=== PATIENT | female | born 1950 | race Caucasian/White ===

== ENCOUNTER 2017-11-21 07:51 | Day surgery (SDC) | payer OTHER ==
--- NOTE | 2017-11-18 10:30 | EKG ---
Test Date: 2017-11-17 Test Time: 10:00:20 [employer]: MURPHY MEASUREMENT RESULTS: Intervals: Rate: 69 ME: 164 QRSD: 94 QT: 412 QTc: 441 [place]: P: 55 ME: 164 QRS: 27 T: 52 INTERPRETIVE STATEMENTS: Normal sinus rhythm Normal ECG Compared to ECG 04/18/2013 04:47:11 Sinus tachycardia no longer present Electronically Signed On 11-18-17 10:27:32 CDT by Bob Tellez
[2017-11-21] MEDS ORDERED: FENTANYL CITR 100 MCG/2 ML IV ONE (07:52)
[2017-11-21] MEDS ORDERED: MIDAZOLAM HCL 2 MG/2 ML INJ IV ONE (07:52)
[2017-11-21] MEDS ORDERED: GENTAMICIN 100 MG/100 ML BAG 100 MG/100 ML BAG IV ONE (08:17)
[2017-11-21] MEDS ORDERED: Ringers Lactate 1,000 ML IV ONE (08:17)
[2017-11-21] MEDS ORDERED: PROPOFOL 200 MG/20 ML VIAL IV ONE ×2 (08:45→09:21)
[2017-11-21] MEDS ORDERED: LIDOCAINE 2% MPF 5 ML VIAL ONE ×2 (08:46→09:21)
[2017-11-21] MEDS ORDERED: MIDAZOLAM HCL 2 MG/2 ML INJ ONE (08:46)
[2017-11-21] MEDS ORDERED: FENTANYL CITR 100 MCG/2 ML ONE ×2 (08:46→09:21)
[2017-11-21] MEDS ORDERED: ONDANSETRON HCL 40 MG/20 ML VIAL ONE (08:49)
--- NOTE | 2017-11-21 09:20 | RAD REPORT ---
EXAM DESCRIPTION: RAD - Abdomen 1 View (KUB) - 11/21/2017 8:24 am CLINICAL HISTORY: Flank pain Pain COMPARISON: Abdomen 1 View (KUB) dated 10/25/2017; Abdomen 1 View (KUB) dated 12/22/2016; Abdomen 1 Vi ew (KUB) dated 07/27/2016; Abdomen 1 View (KUB) dated 07/15/2016 FINDINGS: The bowel gas pattern is non-obstructive. No evidence of free air or pneumatosis. Small ca lcifications project over the right kidney, unchanged. Large amount of stool is seen in the colon. Postsurgical sutures are present on the left. IMPRESSION: Small right renal calculi are likely present, unchanged.
[2017-11-21] MEDS ORDERED: KETOROLAC 30 MG/ML INJ ONE (10:08)
[2017-11-21 12:01] VITALS: BP 101/53; TEMP 98
[2017-11-21 12:02] VITALS: O2SAT 96
== END 2017-11-21 11:35 | disposition home or self-care (01) ==
LOC: PRE 07:51
PROVIDERS: ATTEND Urology
PROC: 0TF3XZZ Fragmentation in Right Kidney Pelvis, External Approach (ICD-10-PCS; principal; 2017-11-21 09:00)
DX: N39.0 Urinary tract infection, site not specified (principal); N20.1 Calculus of ureter; N20.0 Calculus of kidney
CPT/HCPCS: 50590; 74018; 93005; J1580; J3010; J2250; J2405

== ENCOUNTER 2019-02-09 14:11 | Emergency (ER) | payer OTHER ==
[2019-02-09] MEDS ORDERED: MORPHINE 4 MG/ML SYR ONE (15:05)
[2019-02-09] MEDS ORDERED: MORPHINE 2 MG/ML SYR ONE (15:05)
[2019-02-09] MEDS ORDERED: ONDANSETRON 4 MG (ODT) TAB ONE (15:05)
--- NOTE | 2019-02-09 15:15 | ER ---
Nurse's Notes [facility] Name: Clair Ruvalcaba Age: 68 yrs Sex: Female : 1950 Arrival Date: 02/09/2019 Time: 14:14 Bed 13 Private MD: Diagnosis: Nondisplaced fracture of proximal phalanx of finger Presentation: 02/09 14:16 Presenting complaint: Patient states: "I fell and jammed my hand, I hurt my arm, I hurt aj1 my back." Patient states [place] the [place] and she stepped up onto a piece of concrete and lost her balance and fell, landing on her left side. Reports that this fall happened 2 days ago. Bruising noted to left fingers. Patient reports that her pain is not getting any better. Transition of care: patient was not received from another setting of care. Onset of symptoms was February 09, 2019. Risk Assessment: Do you want to hurt yourself or someone else? Patient reports no desire to harm self or others. Initial Sepsis Screen: Does the patient meet any 2 criteria? No. Patient's initial sepsis screen is negative. Does the patient have a suspected source of infection? No. Patient's initial sepsis screen is negative. Care prior to arrival: None. 14:16 Method Of Arrival: Ambulatory aj 14:16 Acuity: FÉLIX 4 aj1 Triage Assessment: 14:18 General: Appears in no apparent distress. uncomfortable, Behavior is calm, cooperative, aj1 appropriate for age. Pain: Complains of pain in back, left hand, anterior aspect of left shoulder, left wrist and posterior aspect of left shoulder Pain currently is 7 out of 10 on a pain scale. Neuro: Level of Consciousness is awake, alert, obeys commands. Cardiovascular: Patient's skin is warm and dry. Respiratory: Airway is patent Trachea Respiratory effort is even, unlabored, Respiratory pattern is regular, symmetrical. Musculoskeletal: Range of motion: limited in DIP of left little finger, PIP of left little finger and MCP of left little finger Swelling present in right hand. Injury Description: Patient reports that she fell 2 days ago. Historical: - Allergies: 14:18 Lisinopril; aj1 - Home Meds: 14:18 Cymbalta Oral [Active]; levothyroxine 25 mcg tab 1 tab once daily [Active]; metoprolol aj1 succinate 25 mg Oral Tb24 1 tab once daily [Active]; Tramadol Oral [Active]; Tylenol #3 Oral [Active]; - PMHx: 14:18 chronic back pain; Hypertension; Hypothyroidism; aj1 - Immunization history:: Flu vaccine is not up to date. - Social history:: Smoking status: Patient/guardian denies using tobacco. - Ebola Screening: : Patient denies travel to an Ebola-affected area in the 21 days before illness onset. Screenin:25 Abuse screen: Denies threats or abuse. Nutritional screening: No deficits noted. rb1 Tuberculosis screening: No symptoms or risk factors identified. Fall Risk Fall in past 12 months (25 points). No secondary diagnosis (0 pts). No IV (0 pts). Ambulatory Aid- None/Bed Rest/Nurse Assist (0 pts). Gait- Normal/Bed Rest/Wheelchair (0 pts) Mental Status- Oriented to own ability (0 pts). Total Jin Fall Scale indicates Low Risk Score (25-44 pts). Fall prevention measures have been instituted. Side Rails Up X 2 Placed close to Nursing Station 1:1 attendant Assigned to Pt. Frequent Obs/Assesments occuring Family Present and informed to notify staff if they need to leave bedside As available Patient and Family Educated on Fall Prevention Program and strategies. Assessment: 14:25 General: Appears in no apparent distress. comfortable, Behavior is calm, cooperative. rb1 Pain: Complains of pain in left hand Pain currently is 7 out of 10 on a pain scale. Pain began x 2 days. Neuro: Level of Consciousness is awake, alert, obeys commands, Oriented to person, place, time, situation. Cardiovascular: Capillary refill < 3 seconds is brisk in bilateral fingers. Respiratory: Airway is patent Respiratory effort is even, unlabored, Respiratory pattern is regular, symmetrical. GI: No signs and/or symptoms were reported involving the gastrointestinal system. : No signs and/or symptoms were reported regarding the genitourinary system. Derm: Skin is pink, warm \\T\\ dry. Musculoskeletal: Range of motion: limited in left fingers. 15:20 Reassessment: Patient appears in no apparent distress at this time. No changes from rb1 previously documented assessment. Vital Signs: 14:18 BP 123 / 84; Pulse 79; Resp 18; Temp 97.6; Pulse Ox 99% on R/A; Weight 63.5 kg (R); aj1 Height 5 ft. 1 in. (154.94 cm) (R); Pain 7/10; 15:15 BP 125 / 79; Pulse 81; Resp 16; Pulse Ox 99% on R/A; rb1 14:18 Body Mass Index 26.45 (63.50 kg, 154.94 cm) aj1 ED Course: 14:14 Patient arrived in ED. as 14:17 Triage completed. aj1 14:18 Arm band placed on Patient placed in an exam room. aj1 14:23 Sameer Milner PA is PHCP. jr8 14:23 Floyd Santos MD is Attending Physician. jr8 14:25 Patient has correct armband on for positive identification. Bed in low position. Call rb1 light in reach. Side rails up X 1. Pulse ox on. NIBP on. 15:01 Teodora Hinton, RN is Primary Nurse. rb1 15:11 Hand Left 3 View XRAY In Process Unspecified. EDMS 15:37 No provider procedures requiring assistance completed. Patient did not have IV access rb1 during this emergency room visit. Administered Medications: 15:13 Drug: morphine 5 mg Route: IM; Site: right gluteus; aa5 15:13 Drug: Zofran 4 mg Route: PO; aa5 Outcome: 15:15 Discharge ordered by . jr8 15:37 Patient left the ED. rb1 15:37 Discharged to home ambulatory, with significant other. rb1 15:37 Condition: stable 15:37 Discharge instructions given to patient, Instructed on discharge instructions, follow up and referral plans. Demonstrated understanding of instructions, follow-up care, Prescriptions given X none Signatures: Dispatcher [employer] EDMS Aisha Beasley, RN RN aj1 Carleen Stiles Audri RN RN aa5 Sameer Milner PA PA jr8 Teodora Hinton, RN RN rb1
--- NOTE | 2019-02-09 15:16 | EDPHYS ---
Physician Documentation [facility] Name: Clair Ruvalcaba Age: 68 yrs Sex: Female : 1950 Arrival Date: 02/09/2019 Time: 14:14 Bed 13 Private MD: ED Physician Floyd Santos HPI: 02/09 14:49 This 68 yrs old Female presents to ER via Ambulatory with complaints of jr8 Finger Injury. 14:49 Mechanism of injury: Fall: the patient fell from a standing position. Onset: The jr8 symptoms/episode began/occurred 2 day(s) ago. Pt reports mechanical fall from 2 days ago with increase pain and bruising to left hand. Historical: - Allergies: 14:18 Lisinopril; aj1 - Home Meds: 14:18 Cymbalta Oral [Active]; levothyroxine 25 mcg tab 1 tab once daily [Active]; metoprolol aj1 succinate 25 mg Oral Tb24 1 tab once daily [Active]; Tramadol Oral [Active]; Tylenol #3 Oral [Active]; - PMHx: 14:18 chronic back pain; Hypertension; Hypothyroidism; aj1 - Immunization history:: Flu vaccine is not up to date. - Social history:: Smoking status: Patient/guardian denies using tobacco. - Ebola Screening: : Patient denies travel to an Ebola-affected area in the 21 days before illness onset. ROS: 14:49 Constitutional: Negative for fever, chills, and weight loss, Eyes: Negative for injury, jr8 pain, redness, and discharge, ENT: Negative for injury, pain, and discharge, Neck: Negative for injury, pain, and swelling, Cardiovascular: Negative for chest pain, palpitations, and edema, Respiratory: Negative for shortness of breath, cough, wheezing, and pleuritic chest pain, Abdomen/GI: Negative for abdominal pain, nausea, vomiting, diarrhea, and constipation, Back: Negative for injury and pain, MS/Extremity: Pain and bruising to left hand Skin: Negative for injury, rash, and discoloration. Exam: 14:49 Constitutional: This is a well developed, well nourished patient who is awake, alert, jr8 and in no acute distress. Head/Face: Normocephalic, atraumatic. Eyes: Pupils equal round and reactive to light, extra-ocular motions intact. Lids and lashes normal. Conjunctiva and sclera are non-icteric and not injected. Cornea within normal limits. Periorbital areas with no swelling, redness, or edema. ENT: Nares patent. No nasal discharge, no septal abnormalities noted. Tympanic membranes are normal and external auditory canals are clear. Oropharynx with no redness, swelling, or masses, exudates, or evidence of obstruction, uvula midline. Mucous membranes moist. Neck: Trachea midline, no thyromegaly or masses palpated, and no cervical lymphadenopathy. Supple, full range of motion without nuchal rigidity, or vertebral point tenderness. No Meningismus. Chest/axilla: Normal chest wall appearance and motion. Nontender with no deformity. No lesions are appreciated. Cardiovascular: Regular rate and rhythm with a normal S1 and S2. No gallops, murmurs, or rubs. Normal PMI, no JVD. No pulse deficits. Respiratory: Lungs have equal breath sounds bilaterally, clear to auscultation and percussion. No rales, rhonchi or wheezes noted. No increased work of breathing, no retractions or nasal flaring. Abdomen/GI: Soft, non-tender, with normal bowel sounds. No distension or tympany. No guarding or rebound. No evidence of tenderness throughout. 14:49 Musculoskeletal/extremity: Extremities: noted in the dorsal aspect of middle phalanx of left middle finger, dorsal aspect of middle phalanx of left ring finger, dorsal aspect of proximal phalanx of left ring finger, dorsal aspect of middle phalanx of left little finger, dorsal aspect of proximal phalanx of left little finger and dorsum of left hand: ecchymosis, ROM: intact in all extremities, Circulation is intact in all extremities. Sensation intact. Vital Signs: 14:18 BP 123 / 84; Pulse 79; Resp 18; Temp 97.6; Pulse Ox 99% on R/A; Weight 63.5 kg (R); aj1 Height 5 ft. 1 in. (154.94 cm) (R); Pain 7/10; 15:15 BP 125 / 79; Pulse 81; Resp 16; Pulse Ox 99% on R/A; rb1 14:18 Body Mass Index 26.45 (63.50 kg, 154.94 cm) aj1 MDM: 14:25 Patient medically screened. jr8 15:11 Data reviewed: vital signs, nurses notes, radiologic studies, plain films, and as a jr8 result, I will discharge patient. Data interpreted: Pulse oximetry: on room air is 99 %. Interpretation: normal. Counseling: I had a detailed discussion with the patient and/or guardian regarding: the historical points, exam findings, and any diagnostic results supporting the discharge/admit diagnosis, radiology results. Medical screen evaluation completed. EMTALA emergency medical condition absent. Medical screen evaluation completed. EMTALA emergency medical condition absent. ED course: Fracture to left fifth proximal phalange, transverse, non-displaced. Pt to be placed in splint and to FU with hand. 02/09 14:49 Order name: Hand Left 3 View XRAY jr8 02/09 15:13 Order name: Finger Splint; Complete Time: 15:28 jr8 Administered Medications: 15:13 Drug: morphine 5 mg Route: IM; Site: right gluteus; aa5 15:13 Drug: Zofran 4 mg Route: PO; aa5 Disposition: 15:46 Co-signature as Attending Physician, Floyd Santos MD. rn Disposition: 02/09/19 15:15 Discharged to Home. Impression: Nondisplaced fracture of proximal phalanx of finger. - Condition is Stable. - Discharge Instructions: Finger Fracture. - Medication Reconciliation Form, Thank You Letter form. - Follow up: Private Physician; When: As needed; Reason: Recheck today's complaints, Re-evaluation by your physician. - Problem is new. - Symptoms have improved. Signatures: Dispatcher [employer] EDMS Aisha Beasley RN RN aj1 Floyd Santos MD MD rn Calderon, Audri, RN RN aa5 Sameer Milner PA PA jr8 Teodora Hinton, RN RN rb1 Corrections: (The following items were deleted from the chart) 15:37 15:15 02/09/2019 15:15 Discharged to Home. Impression: Nondisplaced fracture of rb1 proximal phalanx of finger. Condition is Stable. Forms are Medication Reconciliation Form, Thank You Letter, Antibiotic Education, Prescription Opioid Use. Follow up: Private Physician; When: As needed; Reason: Recheck today's complaints, Re-evaluation by your physician. Problem is new. Symptoms have improved. jr8
[2019-02-09 15:42] VITALS: BP 123/84; TEMP 97.6; O2SAT 99
--- NOTE | 2019-02-09 15:51 | RAD REPORT ---
EXAM DESCRIPTION: RAD -Hand Left 3 View - 02/09/2019 3:10 pm CLINICAL HISTORY: Left hand pain status post injury FINDINGS: Lucency within the proximal aspect of the fifth proximal phalanx probably a nondisplaced f racture A screw fuses the fifth DIP joint. Distal aspect of the screw lies outside of the fifth distal phalan x. Osteoporosis No dislocation
== END 2019-02-09 15:37 | disposition home or self-care (01) ==
LOC: ER 14:11
DX: S62.607A Fracture of unspecified phalanx of left little finger, initial encounter for closed fracture (principal); E03.9 Hypothyroidism, unspecified; I10 Essential (primary) hypertension; W18.30XA Fall on same level, unspecified, initial encounter; Y93.9 Activity, unspecified; Y92.59 Other trade areas as the place of occurrence of the external cause; Z88.8 Allergy status to other drugs, medicaments and biological substances
CPT/HCPCS: 73130; 96372; 99284; J2270

== ENCOUNTER 2019-11-22 16:36 | Emergency (ER) | payer OTHER ==
--- NOTE | 2019-11-22 18:15 | RAD REPORT ---
EXAM DESCRIPTION: CT - [id number] - 11/22/2019 6:05 pm CLINICAL HISTORY: Trauma, head and neck injury. fall injury ;Pain COMPARISON: Myelogram C Spine dated 10/20/2016 TECHNIQUE: Axial 5 mm thick images of the head were obtained. Axial 2 mm thick images of the cervical spine were obtained with sagittal and coronal reconstruction images generated and reviewed. All CT scans are performed using dose optimization technique as appropriate and may include automated exposure control or mA/KV adjustment according to patient size. FINDINGS: CT HEAD WITHOUT CONTRAST: No acute hemorrhage, hydrocephalus or extra-axial collection is identified.No areas of brain edema or midline shift. The paranasal sinuses and mastoids are clear.The calvarium is intact. Moderate right-sided scalp pattie candis. CT CERVICAL SPINE WITHOUT CONTRAST: No fracture or subluxation.Multilevel moderate degenerative changes present, most notable at C4-5 and C5-6. Large posterior osteophyte at C4-5.No prevertebral soft tissues swelling is identified. IMPRESSION: No acute intracranial or cervical spine findings. Moderately severe mid cervical degenerative changes.
--- NOTE | 2019-11-22 18:31 | ER ---
Nurse's Notes [facility] Name: Clair Ruvalcaba Age: 69 yrs Sex: Female : 1950 Arrival Date: 11/22/2019 Time: 16:39 Bed 14 Private MD: Diagnosis: Superficial injury of head;Contusion of right knee;Contusion of right elbow Presentation: 11/21 16:40 Chief complaint: Patient states: Tripped on uneven surface at [employer] parking lot just ll1 [employer]. Landed on right knee. Hit right side of forehead on concrete. No LOC. Hematoma noted. No blood thinners. Gait steady since. Coronavirus screen: Patient denies a cough. Patient denies shortness of breath or difficulty breathing. Patient denies measured and/or subjective temperature greater than 100.4F prior to today's visit. Patient denies travel on a cruise ship or to a country the [facility] currently lists as an affected area. Patient denies contact with known and/or suspected case of COVID-19. Proceed with normal triage. Patient instructed to continue to wear a mask when interacting with others. Patient moved to private room, placed in contact and droplet isolation with eye protection until further assessment. Ebola Screen: Patient denies travel to an Ebola-affected area in the 21 days before illness onset. Initial Sepsis Screen: Does the patient meet any 2 criteria? No. Patient's initial sepsis screen is negative. Risk Assessment: Do you want to hurt yourself or someone else? Patient reports no desire to harm self or others. Onset of symptoms was November 22, 2019. 16:40 Method Of Arrival: EMS: [facility] ll1 16:40 Acuity: FÉLIX 3 ll1 19:16 Initial Sepsis Screen: Does the patient have a suspected source of infection? No. ks7 Patient's initial sepsis screen is negative. Triage Assessment: 17:36 General: Appears in no apparent distress. Behavior is calm, cooperative. Pain: ks7 Complains of pain in right arm and right leg. Left neck. Musculoskeletal: Tenderness present in right arm and right leg. left neck. Injury Description: Abrasion sustained to right arm and right leg. Historical: - Allergies: 19:16 Lisinopril; ks7 19:16 PENICILLINS; ks7 - PMHx: 19:16 chronic back pain; Hypertension; Hypothyroidism; ks7 - Immunization history:: Adult Immunizations up to date. - Social history:: Smoking status: Patient denies any tobacco usage or history of. Patient/guardian denies using alcohol, street drugs, tobacco products. Screenin:38 Abuse screen: Denies threats or abuse. Nutritional screening: No deficits noted. ks7 Tuberculosis screening: No symptoms or risk factors identified. Fall Risk None identified. Fall in past 12 months (25 points). No secondary diagnosis (0 pts). No IV (0 pts). Ambulatory Aid- None/Bed Rest/Nurse Assist (0 pts). Gait- Normal/Bed Rest/Wheelchair (0 pts) Mental Status- Oriented to own ability (0 pts). Total Jin Fall Scale indicates. Assessment: 17:38 General: Appears in no apparent distress. Musculoskeletal: Reports pain in right arm ks7 and right leg. left neck pt states she was walking, tripped on the curb and fell onto R side. pt denies dizziness. mechanical fall. abrasion to R knee and R elbow. full ROM in all extremities. pain to L neck. denies back pain or CARBALLO. 19:14 Reassessment: Patient states feeling better. ks7 Vital Signs: 16:40 BP 123 / 83; Pulse 71; Resp 16; Temp 98.5; Pulse Ox 97% ; Pain 2/10; ll1 17:37 BP 123 / 83; Pulse 80; Resp 18; Temp 98(TE); Pulse Ox 100% ; Pain 5/10; ks7 19:11 BP 125 / 79; Pulse 80; Resp 18; Temp 98.1(O); Pulse Ox 100% ; Pain 0/10; ks7 [place] Coma Score: 17:52 Eye Response: spontaneous(4). Verbal Response: oriented(5). Motor Response: obeys jr8 commands(6). Total: 15. ED Course: 16:39 Patient arrived in ED. ll1 16:41 Triage completed. ll1 16:42 Arm band placed on Patient placed in an exam room, on a stretcher. ll1 16:59 [facility] jr8 16:59 Dhaval Melo MD is Attending Physician. jr8 17:10 Cristela Bishop RN is Primary Nurse. ks7 17:40 Patient has correct armband on for positive identification. Bed in low position. Call ks7 light in reach. Side rails up X2. 17:40 No provider procedures requiring assistance completed. Patient did not have IV access ks7 during this emergency room visit. 18:05 CT Head C Spine In Process Unspecified. EDMS 18:09 Patient moved back from radiology. ks7 Administered Medications: No medications were administered Outcome: 18:30 Discharge ordered by . denis 19:14 Discharged to home ambulatory, with family. ks7 19:14 Condition: good 19:14 Discharge instructions given to patient, Instructed on discharge instructions. 19:16 Patient left the ED. ks7 Signatures: Dispatcher [employer] EDSD Sameer Milner PA PA jr8 Paul Bajwa RN RN ll1 Cristela Bishop RN RN ks7 Corrections: (The following items were deleted from the chart) 19:16 16:42 Allergies: Lisinopril; [facility] ks7 19:16 16:42 Allergies: PENICILLINS; [facility] ks7 19:16 16:42 PMHx: chronic back pain; [facility] ks7 19:16 16:42 PMHx: Hypertension; [facility] ks7 19:16 16:42 PMHx: Hypothyroidism; [facility] ks7
--- NOTE | 2019-11-22 18:31 | EDPHYS ---
Physician Documentation [facility] Name: Clair Ruvalcaba Age: 69 yrs Sex: Female : 1950 Arrival Date: 11/22/2019 Time: 16:39 Bed 14 Private MD: ED Physician Dhaval Melo HPI: 11/21 17:52 This 69 yrs old Female presents to ER via EMS with complaints of Head Injury. jr8 17:52 The patient or guardian reports pain, tenderness. The complaints affect the right jr8 worship. Onset: The symptoms/episode began/occurred acutely, today. Associated signs and symptoms: The patient has no apparent associated signs or symptoms, Loss of consciousness: This patient did not experience any loss of consciousness. Severity of symptoms: At their worst the symptoms were mild, in the emergency department the symptoms are unchanged. The patient has not experienced similar symptoms in the past. The patient has not recently seen a physician. Patient stated that she tripped falling backward. Hit right side of head, elbow, and knee. Only concerned for her head at this time. Historical: - Allergies: 19:16 Lisinopril; ks7 19:16 PENICILLINS; ks7 - PMHx: 19:16 chronic back pain; Hypertension; Hypothyroidism; ks7 - Immunization history:: Adult Immunizations up to date. - Social history:: Smoking status: Patient denies any tobacco usage or history of. Patient/guardian denies using alcohol, street drugs, tobacco products. ROS: 17:52 Eyes: Negative for injury, pain, redness, and discharge, ENT: Negative for injury, jr8 pain, and discharge, Neck: Negative for injury, pain, and swelling, Cardiovascular: Negative for chest pain, palpitations, and edema, Respiratory: Negative for shortness of breath, cough, wheezing, and pleuritic chest pain, Abdomen/GI: Negative for abdominal pain, nausea, vomiting, diarrhea, and constipation, Back: Negative for injury and pain, Skin: Negative for injury, rash, and discoloration. 17:52 MS/extremity: Positive for ecchymosis, pain, swelling, tenderness, of the right arm and right leg. 17:52 Neuro: Positive for headache, Negative for altered mental status, dizziness, gait disturbance, hearing loss, loss of consciousness, numbness, seizure activity, speech changes, syncope, near syncope, tingling, tinnitus, tremor, visual changes, weakness. Exam: 17:52 Head/Face: Normocephalic, atraumatic. Eyes: Pupils equal round and reactive to light, jr8 extra-ocular motions intact. Lids and lashes normal. Conjunctiva and sclera are non-icteric and not injected. Cornea within normal limits. Periorbital areas with no swelling, redness, or edema. ENT: Nares patent. No nasal discharge, no septal abnormalities noted. Tympanic membranes are normal and external auditory canals are clear. Oropharynx with no redness, swelling, or masses, exudates, or evidence of obstruction, uvula midline. Mucous membranes moist. Neck: Trachea midline, no thyromegaly or masses palpated, and no cervical lymphadenopathy. Supple, full range of motion without nuchal rigidity, or vertebral point tenderness. No Meningismus. Cardiovascular: Regular rate and rhythm with a normal S1 and S2. No gallops, murmurs, or rubs. Normal PMI, no JVD. No pulse deficits. Respiratory: Lungs have equal breath sounds bilaterally, clear to auscultation and percussion. No rales, rhonchi or wheezes noted. No increased work of breathing, no retractions or nasal flaring. Abdomen/GI: Soft, non-tender, with normal bowel sounds. No distension or tympany. No guarding or rebound. No evidence of tenderness throughout. Back: No spinal tenderness. No costovertebral tenderness. Full range of motion. Skin: Warm, dry with normal turgor. Normal color with no rashes, no lesions, and no evidence of cellulitis. Neuro: Awake and alert, GCS 15, oriented to person, place, time, and situation. Cranial nerves II-XII grossly intact. Motor strength 5/5 in all extremities. Sensory grossly intact. Cerebellar exam normal. Normal gait. 17:52 Musculoskeletal/extremity: Extremities: grossly normal except: noted in the right arm: Mild bruising noted to right elbow. No tenderness to palpation. Full ROM Present , noted in the right leg: abrasion, ecchymosis, pain, tenderness, ROM: intact in all extremities, full active range of motion, full passive range of motion, Circulation is intact in all extremities. Sensation intact. Vital Signs: 16:40 BP 123 / 83; Pulse 71; Resp 16; Temp 98.5; Pulse Ox 97% ; Pain 2/10; ll1 17:37 BP 123 / 83; Pulse 80; Resp 18; Temp 98(TE); Pulse Ox 100% ; Pain 5/10; ks7 19:11 BP 125 / 79; Pulse 80; Resp 18; Temp 98.1(O); Pulse Ox 100% ; Pain 0/10; ks7 Cydney Coma Score: 17:52 Eye Response: spontaneous(4). Verbal Response: oriented(5). Motor Response: obeys jr8 commands(6). Total: 15. MDM: 17:00 Patient medically screened. jr8 18:29 Data reviewed: vital signs, nurses notes, radiologic studies, CT scan, and as a result, jr8 I will discharge patient. Data interpreted: Pulse oximetry: on room air is 100 %. Interpretation: normal. Counseling: I had a detailed discussion with the patient and/or guardian regarding: the historical points, exam findings, and any diagnostic results supporting the discharge/admit diagnosis, radiology results, the need for outpatient follow up, a family practitioner, to return to the emergency department if symptoms worsen or persist or if there are any questions or concerns that arise at home. 11/21 17:27 Order name: CT Head C Spine; Complete Time: 18:29 jr8 Administered Medications: No medications were administered Disposition: 11/22 08:17 Co-signature as Attending Physician, Dhaval Melo MD I agree with the assessment and kdr plan of care. Disposition: 11/22/19 18:30 Discharged to Home. Impression: Superficial injury of head, Contusion of right knee, Contusion of right elbow. - Condition is Stable. - Discharge Instructions: Head Injury, Adult, Hematoma, Knee Pain. - Medication Reconciliation Form, Thank You Letter, Antibiotic Education, Prescription Opioid Use form. - Follow up: Private Physician; When: 2 - 3 days; Reason: Recheck today's complaints, Continuance of care, Re-evaluation by your physician. - Problem is new. - Symptoms have improved. Signatures: Dispatcher [employer] EDMS Dhaval Melo MD MD kdr Roszak, Josh, PA PA jr8 Paul Bajwa RN RN ll1 Cristela Bishop RN RN ks7 Corrections: (The following items were deleted from the chart) 11/21 19:16 16:42 Allergies: Lisinopril; 1 ks7 19:16 16:42 Allergies: PENICILLINS; 1 ks7 19:16 16:42 PMHx: chronic back pain; 1 ks7 19:16 16:42 PMHx: Hypertension; 1 ks7 19:16 16:42 PMHx: Hypothyroidism; Sujatha ks7 19:16 18:30 11/22/2019 18:30 Discharged to Home. Impression: Superficial injury of head; ks7 Contusion of right knee; Contusion of right elbow. Condition is Stable. Forms are Medication Reconciliation Form, Thank You Letter, Antibiotic Education, Prescription Opioid Use. Follow up: Private Physician; When: 2 - 3 days; Reason: Recheck today's complaints, Continuance of care, Re-evaluation by your physician. Problem is new. Symptoms have improved. jr8
[2019-11-22 20:01] VITALS: O2SAT 100
[2019-11-22 20:02] VITALS: BP 125/79; TEMP 98.1
== END 2019-11-22 19:16 | disposition home or self-care (01) ==
LOC: ER 16:36
DX: S00.90XA Unspecified superficial injury of unspecified part of head, initial encounter (principal); S80.01XA Contusion of right knee, initial encounter; S50.01XA Contusion of right elbow, initial encounter; W01.0XXA Fall on same level from slipping, tripping and stumbling without subsequent striking against object, initial encounter; Y93.01 Activity, walking, marching and hiking; Y92.9 Unspecified place or not applicable; I10 Essential (primary) hypertension; Z88.0 Allergy status to penicillin; Z88.8 Allergy status to other drugs, medicaments and biological substances
CPT/HCPCS: 70450; 72125; 99283

== ENCOUNTER 2020-07-07 08:54 | Day surgery (SDC) | payer OTHER ==
--- NOTE | 2020-07-03 09:47 | RAD REPORT ---
EXAM DESCRIPTION: RAD - Chest Pa And Lat (2 Views) - 07/03/2020 9:40 am CLINICAL HISTORY: PRE OP, pending lithotripsy COMPARISON: Two view chest September 2017 TECHNIQUE: Frontal and lateral views of the chest were obtained. FINDINGS: The lungs are clear of mass, infiltrate or failure. Interstitial pattern matches compariso n. Heart size is normal and central vasculature is within normal limits. No pleural effusion or pn eumothorax seen. Osteopenic and degenerative bony changes are present. No acute finding. No aortic a bnormality. IMPRESSION: No acute cardiopulmonary process. No significant change from 2018.
[2020-07-03 09:52] LABS: Absolute Lymphocytes (CBC) 2.3 K/uL (0.7-4.9); Basophils % 1.1 % (0-1.3); Hematocrit 38.2 % (36.0-45.0); Lymphocytes % 38.1 % (15.3-44.8); RBC Red Blood Cell Count 4.25 M/uL (3.86-4.86)
[2020-07-03 10:07] LABS: Potassium 4.2 mmol/L (3.5-5.1)
[2020-07-03 10:21] LABS: Protime INR 0.82
--- NOTE | 2020-07-03 14:09 | EKG ---
Test Date: 2020-07-03 Test Time: 09:16:34 Spray Machine Tender: LARISA MEASUREMENT RESULTS: Intervals: Rate: 81 MN: 146 QRSD: 82 QT: 386 QTc: 448 [place]: P: 50 MN: 146 QRS: 7 T: 48 INTERPRETIVE STATEMENTS: Normal sinus rhythm Normal ECG Compared to ECG 11/17/2017 10:00:20 No significant changes Electronically Signed On 07-03-20 14:08:48 MAP COMPILER by Bob Tellez
[~2020-07-07 08:54] MED LIST: CLINDAMYCIN INJ 600 MG in NA CHLORIDE 0.9% 50 ML IV ONE; Gentamicin Inj 140 MG in NA CHLORIDE 0.9% 100 ML IV ONE
[2020-07-07] MEDS ORDERED: Ringers Lactate 1,000 ML IV ONE ×2 (09:48→12:56)
[2020-07-07] MEDS ORDERED: LIDOCAINE 2% MPF 5 ML VIAL ONE (11:04)
[2020-07-07] MEDS ORDERED: ONDANSETRON 4 MG/2 ML VIAL ONE (11:04)
[2020-07-07] MEDS ORDERED: FENTANYL CITR 100 MCG/2 ML ONE (11:04)
[2020-07-07] MEDS ORDERED: propofoL 200 MG/20 ML VIAL IV ONE (11:04)
[2020-07-07] MEDS ORDERED: HYDROCODONE/APAP 5/325 MG TAB PO PRN (12:22)
[2020-07-07] MEDS ORDERED: PHENAZOPYRIDINE 100MG TAB PO ONE (12:22)
[2020-07-07] MEDS ORDERED: dexAMETHasone 10 MG/ML VIAL ONE (12:36)
[2020-07-07 13:46] VITALS: BP 114/53; TEMP 97.5
[2020-07-07 13:47] VITALS: O2SAT 96
--- NOTE | 2020-07-07 13:52 | OP ---
Surgeon: ZEB PIERRE Preoperative Diagnoses: 1.Persistent urinary tract infection. 2.Right nephrolithiasis-2 stones, 5 mm each. Postoperative Diagnoses: 1.Persistent urinary tract infection. 2.Right nephrolithiasis-2 stones, 5 mm each. Principle Procedure: Right ESWL stands for extracorporeal shockwave lithotripsy. Indication For Procedure: Ms. Ruvalcaba is a 70-year-old woman, who presented to the Urology Clinic wit h recurrent urinary tract infections. She had previously undergone shockwave lithotripsy with Dr. Adrien gibbs in the past, but she had a persistent urinary tract infection despite multiple treatments with an tibiotics. No cystoscopic abnormality was identified, but upper tract calcifications were noted. As a result, because they were visible on plain film, she was recommended for shockwave lithotripsy in case the stones harbor the infection. As she had more than 1 stone each about 5 mm in size, it was r easonable to attempt to manage her stones this way. The risks and side effects were discussed in det ail as well as the benefits. Procedure In Detail: The patient was consented in the preoperative holding area before being transfe rred to the operative suite where general anesthesia was induced. She was given clindamycin 600 mg a nd gentamicin 140 mg IV antimicrobial prophylaxis and pneumo boots were provided for DVT prophylaxis. She was placed supine on the procedure table with a waterbath beneath her backside. Fluoroscopic i magery was used to visualize and target the 2 calculi seen within the lower pole of the right kidney, and shockwave lithotripsy was initiated. Initially at low power and then ramped up over the course of around 500 shocks to near maximal power of 7, shockwave lithotripsy was allowed to progress until approximately 1000 shocks at which point we revisualized the area. One of the stones had significant ly fragmented and the other was significantly smaller in size. As a result, we retargeted it and con tinued to shock for an additional 1000 shocks. At this point, there were only small fragments that w ere somewhat dispersed, but still within the lower pole of the kidney; so we targeted the area that w ould bring most of those fragments within the cone of shockwave lithotripsy targeting and continued t o shock the stone dust for an additional 500 shocks for a total of 2500 shocks delivered. In the end , the patient was awakened from general anesthesia, transferred to a stretcher, and then transferred to the recovery room in good condition. Complications: None. Discharge Disposition: She will follow up in the Urology Clinic with nurse practitioner, Campos in approximately 2 weeks' time. She will obtain a KUB prior to that visit, but no sooner than 1 or 2 d ays prior if possible. She should be discharged with a strainer to strain her urine to collect any s tone fragments that she is able to pass. She will continue the antimicrobial therapy started preoper atively. Subsequent evaluation would then include a repeat urine culture at least 3-4 weeks after ce ssation of all antimicrobial therapy to assess for persistence of the infection. If any significant residual stone burden seen on KUB associated with persistence of infection, there may be a role for s urgical therapy including ureteroscopy; however, if no significant residual stone burden and the infe ction is cleared, subsequent followup would be established 6 months to 1 year later to assess for int erval recurrence of infection. As she is a recurrent stone former, about 1 month after shockwave lit hotripsy is completed, she should undergo 2 times 24-hour urine collections and metabolic profile ass essment via [facility]. Subsequent followup will be determined both to ensure clearance of her stone burden, but also complete clearance of her persistent infection. BOB/SALVADOR Voice ID: [id number] Report ID: [id number]
== END 2020-07-07 13:49 | disposition home or self-care (01) ==
LOC: OR 08:54
PROVIDERS: ATTEND Urology
DX: N20.0 Calculus of kidney (principal); Z87.440 Personal history of urinary (tract) infections; Z20.822 Contact with and (suspected) exposure to COVID-19
CPT/HCPCS: 93005; 87088; 85025; 87086; 80048; 36415; 85610; 85730; 87077; 87186; 71046; 50590; U0002; J2704; J1580; J3010; J1100; J7120 ×2; J2405

== ENCOUNTER 2020-08-13 06:50 | Day surgery (SDC) | payer OTHER ==
--- OUTSIDE RECORDS SUMMARY | 2020-08-13 06:53 | XMS REPORT | Continuity of Care Document ---
:1950 Author Organization [facility] t Address [address] [place] [address] Care Team Providers Name Role Phone Rosa Leary RN Attending Clinician Unavailable Meseret Auguste Attending Clinician Eda RUIZ S Attending Clinician Elham RUIZ Attending Clinician Therapy-Walkin Attending Clinician Unavailable Doctor Unassigned, Name Attending Clinician Unavailable Elham RUIZ Admitting Clinician Problems This patient has no known problems. Allergies, Adverse Reactions, Alerts This patient has no known allergies or adverse reactions. Medications This patient has no known medications. Procedures This patient has no known procedures. Encounters Start End Encounter Admission Attending Care Care Encounter Source Date/Time Date/Time Type Type Clinicians Facility Department ID 2020-08-10 2020-08-[address] [facility] [id number] [facility] 2020-08-06 2020-08-[address] [facility] [id number] [facility] 2020-07-06 2020-07-[address] [facility] [id number] [facility] 2020-06-112020-06-[address] [facility] [id number] [facility] 2020-05-04 2020-05-04 [facility] [id number] 2020-04-23 2020-04-[address] [facility] [id number] [facility] 2020-04-07 2020-04-07 Transition Jim Leary [id number] 00:00:00 00:00:00 of Care Rosa Branch [id number] Kristy [id number] 2020-04-02 2020-04-05 [facility] MontoyaMeseret [facility] [id number] 18:40:00 15:45:00 Encounter Hernan Veras [id number] Bassam Lizarraga [id number] [place] [id number] 2019-12-09 2019-12-09 Ancillary Therapy-[facility] [id number] 14:04:10 18:17:26 Visit kin, Health [id number] Lizbeth-tSanislav-Mari Lemariah [id number] [facility] [id number] [address] ([facility]) 2019-12-09 2019-12-09 Orders Doctor JIM [id number] 00:00:00 00:00:00 Only Unassigned, ALVIN [id number] [place] [facility] [id number] Results This patient has no known results.
[2020-08-13] MEDS ORDERED: MORPHINE 2 MG/ML SYR ONE (08:12)
[2020-08-13] MEDS ORDERED: ONDANSETRON 4 MG/2 ML VIAL ONE ×2 (08:12→13:03)
--- NOTE | 2020-08-13 08:14 | RAD REPORT ---
EXAM DESCRIPTION: CT - Stone Protocol - 08/13/2020 8:01 am CLINICAL HISTORY: Abdominal pain. Left flank pain COMPARISON: 2012 TECHNIQUE: Computed axial tomography of the abdomen pelvis was obtained without oral or IV contrast. Lack of IV and oral contrast limits evaluation of solid organs, bowel, and vessels. Coronal reformat felicia images were obtained and reviewed. All CT scans are performed using dose optimization technique as appropriate and may include automated exposure control or mA/KV adjustment according to patient size. FINDINGS: Multiple, bilateral renal calculi. 12 millimeters calculus mid left ureter. Moderate left hydronephrosis. No right hydronephrosis. No bladder calculus The liver, spleen, pancreas and adrenals appear grossly normal There is no evidence of diverticulitis. Postsurgical changes involve the stomach and small bowel. Normal appendix. Moderate amount of stool within the colon IMPRESSION: 12 millimeter calculus mid left ureter resulting in moderate left hydronephrosis
[2020-08-13 08:42] LABS: Absolute Lymphocytes (CBC) 2.2 K/uL (0.7-4.9); Basophils % 0.7 % (0-1.3); Hematocrit 37.9 % (36.0-45.0); Lymphocytes % 23.2 % (15.3-44.8); MPV 8.3 fL (7.6-11.3); RBC Red Blood Cell Count 4.31 M/uL (3.86-4.86)
[2020-08-13 08:48] LABS: ALT/SGPT 22 U/L (12-78); AST/SGOT 14 U/L (15-37); Albumin 3.7 g/dL (3.4-5.0); Alkaline Phosphatase 86 U/L (45-117); BUN Blood Urea Nitrogen 27 mg/dL (7-18); Bicarbonate 22 mmol/L (21-32); Bilirubin Direct < 0.1 mg/dL (0-0.2); Bilirubin Total 0.3 mg/dL (0.2-1.0); Glucose Level 112 mg/dL (74-106); Lipase 114 U/L (73-393); Protein, Total 7.4 g/dL (6.4-8.2); Sodium Level 138 mmol/L (136-145)
[2020-08-13] MEDS ORDERED: PROMETHAZINE INJ 25 MG/ML AMP ONE (09:35)
[2020-08-13] MEDS ORDERED: FENTANYL CITR 100 MCG/2 ML ONE ×3 (09:35→13:01)
--- NOTE | 2020-08-13 09:53 | ER ---
Nurse's Notes [facility] Name: Clair Ruvalcaba Age: 70 yrs Sex: Female : 1950 Arrival Date: 08/13/2020 Time: 06:52 Bed 14 Private MD: Diagnosis: 12 mm left renal calculus with mild to moderate hydronephrosis Presentation: 08/13 07:08 Chief complaint: Patient states: pain to left lateral aspect of abdomen that began 2 aa5 days ago. Pt reports she has been taking Cephalexin for UTI since Monday. Pt denies nausea/vomiting/diarrhea. 07:08 Coronavirus screen: At this time, the client does not indicate any symptoms associated aa5 with coronavirus-19. Ebola Screen: Patient negative for fever greater than or equal to 101.5 degrees Fahrenheit, and additional compatible Ebola Virus Disease symptoms. Initial Sepsis Screen: Does the patient meet any 2 criteria? No. Patient's initial sepsis screen is negative. Does the patient have a suspected source of infection? No. Patient's initial sepsis screen is negative. Risk Assessment: Do you want to hurt yourself or someone else? Patient reports no desire to harm self or others. Onset of symptoms was August 2020. 07:08 Method Of Arrival: Ambulatory aa5 07:08 Acuity: FÉLIX 3 aa5 Historical: - Allergies: 07:25 Lisinopril; aa5 07:25 PENICILLINS; aa5 - PMHx: 07:25 chronic back pain; Hypertension; Hypothyroidism; aa5 - PSHx: 07:25 Gastric Bypass; bladder lift; Hysterectomy; R knee replacement; aa5 - Immunization history:: Adult Immunizations unknown. - Social history:: Smoking status: Patient denies any tobacco usage or history of. Screenin:00 Abuse screen: Denies threats or abuse. Nutritional screening: No deficits noted. jd3 Tuberculosis screening: No symptoms or risk factors identified. Fall Risk Ambulatory Aid- None/Bed Rest/Nurse Assist (0 pts). Gait- Normal/Bed Rest/Wheelchair (0 pts) Mental Status- Oriented to own ability (0 pts). Total Jin Fall Scale indicates No Risk (0-24 pts). Assessment: 07:59 General: Appears in no apparent distress. uncomfortable, Behavior is calm, cooperative, jd3 appropriate for age. Pain: Complains of pain in anterior aspect of left lateral abdomen. Neuro: Level of Consciousness is awake, alert, obeys commands, Oriented to person, place, time, situation. Cardiovascular: Denies chest pain, Capillary refill < 3 seconds Patient's skin is warm and dry. Respiratory: Airway is patent Respiratory effort is even, unlabored, Respiratory pattern is regular, symmetrical, Denies cough, shortness of breath. GI: Abdomen is round non-distended, Abd is soft and non tender X 4 quads. Reports upper abdominal pain. : Reports being treated currently for UTI. EENT: No signs and/or symptoms were reported regarding the EENT system. Derm: Skin is intact, Skin is dry, Skin is normal, Skin temperature is warm. Musculoskeletal: Circulation, motion, and sensation intact. Range of motion: intact in all extremities. 09:36 Reassessment: Patient appears in no apparent distress at this time. No changes from jd3 previously documented assessment. Patient and/or family updated on plan of care and expected duration. Pain level reassessed. Patient is alert, oriented x 3, equal unlabored respirations, skin warm/dry/pink. 10:24 Reassessment: Patient appears in no apparent distress at this time. Patient and/or jd3 family updated on plan of care and expected duration. Pain level reassessed. Patient is alert, oriented x 3, equal unlabored respirations, skin warm/dry/pink. Patient states feeling better. 11:30 Reassessment: Patient appears in no apparent distress at this time. No changes from jd3 previously documented assessment. Patient and/or family updated on plan of care and expected duration. Pain level reassessed. Patient is alert, oriented x 3, equal unlabored respirations, skin warm/dry/pink. 12:50 Reassessment: Patient appears in no apparent distress at this time. Patient and/or jd3 family updated on plan of care and expected duration. Pain level reassessed. Patient is alert, oriented x 3, equal unlabored respirations, skin warm/dry/pink. OR team to pick pt up for surgery. report given to OR nurse. Vital Signs: 07:08 BP 139 / 95; Pulse 82; Resp 18 S; Temp 98.2(O); Pulse Ox 100% on R/A; Weight 68.04 kg aa5 (R); Height 5 ft. 2 in. (157.48 cm) (R); Pain 3/10; 10:24 BP 133 / 75; Pulse 78; Resp 17 S; Pulse Ox 97% on R/A; jd3 12:51 BP 142 / 63; Pulse 82; Resp 17 S; Pulse Ox 98% on R/A; jd3 07:08 Body Mass Index 27.44 (68.04 kg, 157.48 cm) aa5 ED Course: 06:52 Patient arrived in ED. as 07:08 Arm band placed on Patient placed in an exam room, on a stretcher. aa5 07:13 Dhaval Melo MD is Attending Physician. kdr 07:17 Marck Yeh RN is Primary Nurse. jd3 07:24 Triage completed. aa5 08:00 Patient has correct armband on for positive identification. Bed in low position. Call jd3 light in reach. Side rails up X 1. Adult w/ patient. Pulse ox on. NIBP on. 08:01 CT Stone Protocol In Process Unspecified. EDMS 08:30 Inserted saline lock: 24 gauge in right wrist, using aseptic technique. Blood collected.jd3 09:51 Tre Sears MD is Referral Physician. kdr 10:18 Tre Sears MD is Hospitalizing Provider. kdr 12:52 No provider procedures requiring assistance completed. Patient admitted, IV remains in jd3 place. Administered Medications: 08:29 Drug: morphine 2 mg Route: IVP; Site: right wrist; jd3 09:25 Follow up: Response: No adverse reaction; RASS: Alert and Calm (0) jd3 08:29 Drug: Zofran (Ondansetron) 4 mg Route: IVP; Site: right wrist; jd3 09:25 Follow up: Response: No adverse reaction jd3 09:18 Drug: fentaNYL (PF) 25 mcg Route: IVP; Site: right wrist; aa5 10:10 Follow up: Response: No adverse reaction; RASS: Alert and Calm (0) jd3 09:18 Drug: Phenergan 12.5 mg Route: IVP; Site: right wrist; aa5 10:10 Follow up: Response: No adverse reaction jd3 12:23 Drug: fentaNYL (PF) 25 mcg Route: IVP; Site: right wrist; jd3 12:54 Follow up: Response: No adverse reaction; RASS: Alert and Calm (0) jd3 Outcome: 09:52 Discharge ordered by . kdr 10:19 Decision to Hospitalize by Provider. kdr 12:52 Admitted to OR accompanied by nurse, via stretcher, with chart. jd3 12:52 Condition: stable 12:52 Instructed on the need for admit, Demonstrated understanding of instructions. 12:53 Patient left the ED. jd3 Signatures: Dispatcher [employer] EDMS Dhaval Melo MD MD kdr Martinez, Amelia as Calderon, Audri, RN RN aa5 Marck Yeh RN RN jd3 Corrections: (The following items were deleted from the chart) 12:52 12:50 Reassessment: Patient appears in no apparent distress at this time. Patient jd3 and/or family updated on plan of care and expected duration. Pain level reassessed. Patient is alert, oriented x 3, equal unlabored respirations, skin warm/dry/pink. jd3
--- NOTE | 2020-08-13 09:53 | EDPHYS ---
Physician Documentation [facility] Name: Clair Ruvalcaba Age: 70 yrs Sex: Female : 1950 Arrival Date: 08/13/2020 Time: 06:52 Bed 14 Private MD: ED Physician Dhaval Melo HPI: 08/13 08:14 This 70 yrs old Female presents to ER via Ambulatory with complaints of Flank kdr Pain, Abdominal Problem. 08:15 The patient presents with abdominal pain in the left lower quadrant. Onset: The kdr symptoms/episode began/occurred last night. The symptoms radiate to the left flank. Associated signs and symptoms: Pertinent positives: constipation, nausea, Pertinent negatives: blood in stools, chest pain, diarrhea, dysuria, fever, headache, hematuria, palpitations, shortness of breath, vaginal discharge, vomiting, vomiting blood. The symptoms are described as achy, constant, crampy, steady, vague. Modifying factors: The symptoms are alleviated by nothing, the symptoms are aggravated by nothing. Severity of pain: At its worst the pain was mild moderate just prior to arrival, this morning, last night, She was unable to sleep or get comfortable all night. She had come to the ED but it was busy so she went back home but couldn't get comfortable or sleep so she returned this morning, in the emergency department the pain is unchanged. The patient has not experienced similar symptoms in the past. The patient has not recently seen a physician. Historical: - Allergies: 07:25 Lisinopril; aa5 07:25 PENICILLINS; aa5 - PMHx: 07:25 chronic back pain; Hypertension; Hypothyroidism; aa5 - PSHx: 07:25 Gastric Bypass; bladder lift; Hysterectomy; R knee replacement; aa5 - Immunization history:: Adult Immunizations unknown. - Social history:: Smoking status: Patient denies any tobacco usage or history of. ROS: 08:15 Constitutional: Negative for fever, chills, and weight loss, Eyes: Negative for injury, kdr pain, redness, and discharge, Neck: Negative for injury, pain, and swelling, Cardiovascular: Negative for chest pain, palpitations, and edema, Respiratory: Negative for shortness of breath, cough, wheezing, and pleuritic chest pain, Back: Negative for injury and pain, : Negative for injury, bleeding, discharge, and swelling, MS/Extremity: Negative for injury and deformity, Skin: Negative for injury, rash, and discoloration, Neuro: Negative for headache, weakness, numbness, tingling, and seizure activity. Psych: Negative for depression, anxiety, suicide ideation, homicidal ideation, and hallucinations, Allergy/Immunology: Negative for hives, rash, and allergies, Endocrine: Negative for neck swelling, polydipsia, polyuria, polyphagia, and marked weight changes, Hematologic/Lymphatic: Negative for swollen nodes, abnormal bleeding, and unusual bruising. 08:15 Abdomen/GI: Positive for abdominal pain, nausea, vomiting, abdominal cramps, Negative for black/tarry stool, rectal pain, rectal bleeding, bowel incontinence. Exam: 08:15 Constitutional: This is a well developed, well nourished patient who is awake, alert, kdr and in no acute distress. Head/Face: Normocephalic, atraumatic. Eyes: Pupils equal round and reactive to light, extra-ocular motions intact. Lids and lashes normal. Conjunctiva and sclera are non-icteric and not injected. Cornea within normal limits. Periorbital areas with no swelling, redness, or edema. ENT: Nares patent. No nasal discharge, no septal abnormalities noted. Tympanic membranes are normal and external auditory canals are clear. Oropharynx with no redness, swelling, or masses, exudates, or evidence of obstruction, uvula midline. Mucous membranes moist. Neck: Trachea midline, no thyromegaly or masses palpated, and no cervical lymphadenopathy. Supple, full range of motion without nuchal rigidity, or vertebral point tenderness. No Meningismus. Chest/axilla: Normal chest wall appearance and motion. Nontender with no deformity. No lesions are appreciated. Cardiovascular: Regular rate and rhythm with a normal S1 and S2. No gallops, murmurs, or rubs. Normal PMI, no JVD. No pulse deficits. Respiratory: Lungs have equal breath sounds bilaterally, clear to auscultation and percussion. No rales, rhonchi or wheezes noted. No increased work of breathing, no retractions or nasal flaring. Back: No spinal tenderness. No costovertebral tenderness. Full range of motion. Skin: Warm, dry with normal turgor. Normal color with no rashes, no lesions, and no evidence of cellulitis. MS/ Extremity: Pulses equal, no cyanosis. Neurovascular intact. Full, normal range of motion. Neuro: Awake and alert, GCS 15, oriented to person, place, time, and situation. Cranial nerves II-XII grossly intact. Motor strength 5/5 in all extremities. Sensory grossly intact. Cerebellar exam normal. Normal gait. Psych: Awake, alert, with orientation to person, place and time. Behavior, mood, and affect are within normal limits. 08:15 Abdomen/GI: Inspection: abdomen appears normal, Bowel sounds: active, all quadrants, Palpation: soft, mild abdominal tenderness, in the anterior aspect of left lateral abdomen and left lower quadrant, mass, is not appreciated, rebound tenderness, is not appreciated, involuntary guarding, is not appreciated, no appreciated organomegaly. Vital Signs: 07:08 BP 139 / 95; Pulse 82; Resp 18 S; Temp 98.2(O); Pulse Ox 100% on R/A; Weight 68.04 kg aa5 (R); Height 5 ft. 2 in. (157.48 cm) (R); Pain 3/10; 10:24 BP 133 / 75; Pulse 78; Resp 17 S; Pulse Ox 97% on R/A; jd3 12:51 BP 142 / 63; Pulse 82; Resp 17 S; Pulse Ox 98% on R/A; jd3 07:08 Body Mass Index 27.44 (68.04 kg, 157.48 cm) aa5 MDM: 08:15 Data reviewed: vital signs, nurses notes, lab test result(s), radiologic studies. kdr Counseling: I had a detailed discussion with the patient and/or guardian regarding: the historical points, exam findings, and any diagnostic results supporting the discharge/admit diagnosis, lab results, radiology results. 09:52 Patient medically screened. kdr 08/13 07:13 Order name: Basic Metabolic Panel; Complete Time: 09:37 kdr 08/13 07:13 Order name: CBC with Diff; Complete Time: 09:37 kdr 08/13 07:13 Order name: Hepatic Function; Complete Time: 09:37 kdr 08/13 07:13 Order name: Lipase; Complete Time: 09:37 kdr 08/13 07:38 Order name: CT Stone Protocol kdr 08/13 07:13 Order name: IV Saline Lock; Complete Time: 08:24 kdr 08/13 07:13 Order name: Labs collected and sent; Complete Time: 08:24 kdr Administered Medications: 08:29 Drug: morphine 2 mg Route: IVP; Site: right wrist; jd3 09:25 Follow up: Response: No adverse reaction; RASS: Alert and Calm (0) jd3 08:29 Drug: Zofran (Ondansetron) 4 mg Route: IVP; Site: right wrist; jd3 09:25 Follow up: Response: No adverse reaction jd3 09:18 Drug: fentaNYL (PF) 25 mcg Route: IVP; Site: right wrist; aa5 10:10 Follow up: Response: No adverse reaction; RASS: Alert and Calm (0) jd3 09:18 Drug: Phenergan 12.5 mg Route: IVP; Site: right wrist; aa5 10:10 Follow up: Response: No adverse reaction jd3 12:23 Drug: fentaNYL (PF) 25 mcg Route: IVP; Site: right wrist; jd3 12:54 Follow up: Response: No adverse reaction; RASS: Alert and Calm (0) jd3 Disposition: 08/13/20 10:19 Hospitalization ordered by Tre Sears for Observation. Preliminary diagnosis is 12 mm left renal calculus with mild to moderate hydronephrosis. - Bed requested for Operating Room. - Status is Observation. jd3 - Condition is Fair. - Problem is an acute exacerbation. - Symptoms have improved. Signatures: Dispatcher [employer] EDMS Dhaval Melo MD MD kdr Anni Bailey RN RN aa5 Marck Yeh RN RN jd3 Corrections: (The following items were deleted from the chart) 10:17 09:52 08/13/2020 09:52 Discharged to Home. Impression: 12 mm left renal calculus with kdr mild to moderate left hydronephrosis. Condition is Stable. Forms are Medication Reconciliation Form, Thank You Letter, Antibiotic Education, Prescription Opioid Use. Follow up: Tre Sears; When: call person to OR at Noon; Reason: Continuance of care, Re-evaluation by your physician. Problem is an acute exacerbation. Symptoms have improved. kdr 12:53 10:19 Hospitalization Ordered by Tre Sears MD for Observation. Preliminary jd3 diagnosis is 12 mm left renal calculus with mild to moderate hydronephrosis. Bed requested for Operating Room. Status is Observation. Condition is Fair. Problem is an acute exacerbation. Symptoms have improved. kdr
[2020-08-13] MEDS ORDERED: propofoL 200 MG/20 ML VIAL IV ONE (13:01)
[2020-08-13] MEDS ORDERED: dexAMETHasone 10 MG/ML VIAL ONE (13:01)
[2020-08-13] MEDS ORDERED: KETOROLAC 30 MG/ML INJ ONE (13:01)
[2020-08-13] MEDS ORDERED: LIDOCAINE 1% MPF 5 ML VIAL ONE (13:02)
[2020-08-13] MEDS ORDERED: Ringers Lactate 1,000 ML IV ONE (13:23)
[2020-08-13] MEDS ORDERED: CEFAZOLIN/SWI 1gm 1 GM/10 ML SYR ONE (13:52)
[2020-08-13] MEDS ORDERED: NS 0.9% VIAL 10 ML ONE (13:52)
--- NOTE | 2020-08-13 14:54 | RAD REPORT ---
EXAM DESCRIPTION: RAD - Urethrocystogrphy Retrograde - 08/13/2020 2:06 pm CLINICAL HISTORY: LEFT SIDE KIDNEY STONE COMPARISON: No comparisons FINDINGS: Total fluoro time: 7 seconds
--- NOTE | 2020-08-13 15:16 | CON ---
Reason For Consultation: Left ureterolithiasis and left flank pain. History Of Present Illness: Mrs. Ruvalcaba presented to the emergency department after a night of sever e left flank pain. She initially presented to the emergency department around midnight or 3 a.m., bu t because the facility was so backlogged with patients, she went home and returned earlier this [facility]. She subsequently was evaluated and found to have signs of acute kidney injury with a creatinine of 1.5 over her baseline of less than 1. A CT scan was performed and revealed left ureteral obstruct ion consistent with 1 of the 2 stones known to be remnant in the left kidney on most recent KUB. The patient was afebrile at home and throughout the course of this episodes, but she did have significan t pain. She was thus counseled on the recommendation for left ureteral stent placement. Physical Examination: General: At the time of my visit with the patient, she was comfortable and well-appearing, in no acu te distress. Abdomen: Her abdomen was soft and nontender. Cardiovascular: She had no signs of dyspnea or respiratory distress. Laboratory Data: 08/13/2020; creatinine 1.53. White blood count 9.6, hemoglobin 12.9. I reviewed the CT imaging directly and despite the read which would suggest a 12 mm calculus in the u reter on the left, to my measurement, the calculus was 5 mm in diameter. The longitudinal length is more difficult to assess. Assessment And Recommendations: This is a 70-year-old woman with bilateral nephrolithiasis with left ureterolithiasis causing flank pain and acute kidney injury. I recommend cystoscopy in evaluation of her known outpatient recurrent urinary tract infections. I have also recommended evaluation for signs of colovesical fistula. Simultaneously, we will proceed with retrograde pyelography and left ureteral stent placement and man agement of her acute kidney injury. WR/MODL Voice ID: [id number] Report ID: [id number]
--- NOTE | 2020-08-13 15:19 | OP ---
Surgeon: ZEB PIERRE Preoperative Diagnoses: 1.Left ureterolithiasis. 2.Left nephrolithiasis. Postoperative Diagnoses: 1.Left ureterolithiasis approximately 5 mm axial dimension. 2.Left nephrolithiasis, single calculus approximately 4 mm axial dimension. Principal Procedures: 1.Cystoscopy. 2.Left retrograde pyelography. 3.Left ureteral stent placement. Indication For Procedure: Mrs. Ruvalcaba is a 70-year-old woman, who is well known to me in [facility]. Because of issues with recurrent urinary tract infections, I had evaluated her and recommende d shockwave lithotripsy in a staged approach starting with the right side, where the predominance of her stone burden existed. She underwent that procedure in an uncomplicated fashion on July 07, 2020 and did pass several stone fragments. Followup KUB revealed significant fragmentation of the [address] one burden present amongst other smaller stones in that kidney. However, she had persistent left nep hrolithiasis, but the size of the stones was 5 mm by plain film and there were 2 stones. Because of persistent signs of infection despite fragmentation of the right calculi, I recommended cystoscopic e valuation and consideration for a CT of the abdomen and pelvis with oral and rectal contrast to asses s for potential fistula disease. Shortly after her most recent visit where I initiated Keflex for he r urinary tract infection, she developed severe flank pain that resulted in emergency department visi t and evaluation. In the absence of any fever or chills, but with signs of acute kidney injury with a creatinine of 1.5 up from her baseline less than 1, cystoscopy and left ureteral stent placement we re recommended. Procedure In Detail: The patient was consented in the preoperative holding area before being transfe rred to the operative suite where general anesthesia using an LMA was induced. She was given Ancef 1 g IV antimicrobial prophylaxis to complement the Keflex that she last took around 3 a.m. Pneumoboot s were provided for DVT prophylaxis. She was placed in the lithotomy position, padded and secured to the table appropriately. Her genitalia were prepped using Hibiclens and draped in standard fashion. The case was begun using the sequential obturators to dilate the meatus prior to inserting a 22-Pramod nch rigid cystoscope via her urethra and enter a bladder with ease. There was some mild urethral varsha nosis that necessitated this dilatation prior to passage of the scope. Upon entry into the bladder, it was decompressed of urine, and then refilled with sterile saline and surveyed in its entirety. Wi thin the posterior region of the bladder, there were sessile lesions observed that were likely consis tent with cystitis or cystitis cystica as they did not have a typical urothelial carcinoma appearance and likely were related to her recent infection. The ureteral orifices were orthotopic in location and were effluxing clear urine bilaterally. The left ureteral orifice was cannulated with a 5-Czech ureteral access catheter and a retrograde pyelogram was performed. Left retrograde pyelography: Using a 70:30 mixture of Omnipaque and saline, contrast was injected via the 5-Czech ureteral access catheter and did propagate with ease up the mid distal into the mid and proximal ureter before enter ing a moderately dilated renal pelvis. I then passed a Sensor wire via the 5-Czech ureteral access catheter where it coiled in the upper pole. Over the Sensor wire, I then passed a 6-Czech by 24 cm double-J left ureteral stent with a coil observed fluoroscopically in the upper pole and 1 cystoscopi arturo observed within the bladder. Her bladder was then decompressed of fluid and urine, and she was taken out of the lithotomy position, she was then awakened from general anesthesia, transferred to a stretcher and then transferred to the recovery room in good condition. Complications: None. Discharge Disposition: Given the absence of any cystoscopic evidence of a fistula or other source to explain her recurrent infection, I recommend we proceed with definitive management of the stones on the left side and then reassess at that time. To that end, her followup appointment for outpatient c ystoscopy may be canceled, as the cystoscopy was completed operatively today. Subsequent followup sh ould be established to plan and discuss left ureteroscopy with laser lithotripsy and stent placement to occur within the next 30 days if possible. WR/MODL Voice ID: [id number] Report ID: [id number]
[2020-08-13] MEDS ORDERED: PHENAZOPYRIDINE 100MG TAB PO ONE (15:26)
[2020-08-13] MEDS ORDERED: HYDROCODONE/APAP 5/325 MG TAB ONE (15:26)
[2020-08-13 15:28] LABS: Urine Appearance CLOUDY (Clear); Urine Bilirubin NEGATIVE (Negataive); Urine Blood 3+ (Negative); Urine Color YELLOW (Yellow); Urine Glucose NEGATIVE (Negative); Urine Protein NEGATIVE (Negative); Urine Urobilinogen 0.2 mg/dL (0.2-1.0)
[2020-08-13 15:37] LABS: Urine Microscopic Reflex ORDER UMIC
[2020-08-13 15:49] VITALS: BP 112/66; TEMP 97.1; O2SAT 96
[2020-08-13 15:54] LABS: Urine Bacteria <20 /HPF (<20); Urine RBC >50 /HPF (NONE SEEN)
== END 2020-08-13 14:52 ==
LOC: ER 06:50 → OR 12:50 → ER 15:40
PROVIDERS: ATTEND Urology
PROC: 0T778DZ Dilation of Left Ureter with Intraluminal Device, Via Natural or Artificial Opening Endoscopic (ICD-10-PCS; principal; 2020-08-13 12:00)
DX: N20.1 Calculus of ureter (principal); N20.0 Calculus of kidney; Z20.822 Contact with and (suspected) exposure to COVID-19
CPT/HCPCS: 87088; 85025; 87086; 80048; 36415; 80076; 83690; 76377; 74176; 74450; 51610; 96375; 96374; 99285; 52332; U0003; J2704; J2550; J3010 ×3; J1100; J2270; J0690; J7120; J2405 ×2; 81003; 81015

== ENCOUNTER 2020-08-25 06:34 | Day surgery (SDC) | payer OTHER ==
[2020-08-25] MEDS ORDERED: Ringers Lactate 1,000 ML IV ONE (07:11)
[2020-08-25] MEDS ORDERED: propofoL 200 MG/20 ML VIAL IV ONE (07:25)
[2020-08-25] MEDS ORDERED: LIDOCAINE 1% MPF 5 ML VIAL ONE (07:26)
[2020-08-25] MEDS ORDERED: FENTANYL CITR 100 MCG/2 ML ONE ×2 (07:26→09:28)
[2020-08-25] MEDS ORDERED: KETOROLAC 30 MG/ML INJ ONE (07:26)
[2020-08-25] MEDS ORDERED: dexAMETHasone 10 MG/ML VIAL ONE (07:26)
[2020-08-25] MEDS ORDERED: ONDANSETRON 4 MG/2 ML VIAL ONE ×2 (07:26→09:10)
[2020-08-25] MEDS ORDERED: CLINDAMYCIN 600MG/D5W 600 MG/50 ML BAG IV SCH (08:00)
[2020-08-25] MEDS ORDERED: Gentamicin Inj 160 MG in NA CHLORIDE 0.9% 100 ML IV ONE (08:00)
[2020-08-25] MEDS ORDERED: CEFTRIAXONE/SWI 1gm 1 GM/10 ML SYR IV ONE (08:04)
[2020-08-25] MEDS ORDERED: CEFTRIAXONE/SWI 1gm 1 GM/10 ML SYR ONE (08:27)
[2020-08-25] MEDS ORDERED: ROCURONIUM 50 MG/5 ML VIAL IV ONE (08:33)
--- NOTE | 2020-08-25 09:01 | RAD REPORT ---
EXAM DESCRIPTION: RAD - Urethrocystogrphy Retrograde - 08/25/2020 8:39 am FINDINGS: There were 23 fluoroscopic KUB images obtained during fluoroscopic assisted retrograde ure teral Zach and pigtail stent placement. No suspicious or unexpected findings. Fluoro time was 27 seconds.
[2020-08-25] MEDS ORDERED: PHENAZOPYRIDINE 100MG TAB PO ONE ×2 (09:03→10:08)
[2020-08-25] MEDS ORDERED: HYDROCODONE/APAP 5/325 MG TAB PO PRN (09:03)
[2020-08-25] MEDS ORDERED: HYDROCODONE/APAP 5/325 MG TAB ONE (10:07)
[2020-08-25 10:15] VITALS: BP 147/69; TEMP 97.6; O2SAT 96
--- NOTE | 2020-08-25 15:57 | OP ---
Surgeon: ZEB PIERRE Preoperative Diagnoses: 1.Left obstructive ureterolithiasis. 2.Left nephrolithiasis. 3.Status post cystoscopy and left ureteral stent placement. Postoperative Diagnoses: 1.Left obstructive ureterolithiasis. 2.Left nephrolithiasis. 3.Status post cystoscopy and left ureteral stent placement. 4.Suspected urinary tract infection. Principle Procedures: 1.Cystoscopy. 2.Left ureteroscopy with laser lithotripsy. 3.Left renal aspirate, urine culture. 4.Left ureteral stent exchange. Indication For Procedure: Mrs. Ruvalcaba is a 70-year-old woman, who had previously been treated for ri ght-sided nephrolithiasis with shockwave lithotripsy with small volume left-sided nephrolithiasis. S hortly after her last outpatient visit with the decision to observe and consider intervention in a de layed fashion on the left side, the patient subsequently began to pass a left ureteral calculus resul ting in some acute kidney injury. As a result, a stent was placed urgently to preserve her renal fun ction. She presents today in followup for definitive management having undergone a preoperative urin e culture assessment just 3 days ago, which revealed less than 10,000 colonies mixed ericka. Procedure In Detail: The patient was consented in the preoperative holding area before being transfe rred to the operative suite where general anesthesia was induced. She was given clindamycin 600 mg a nd gentamicin 160 mg IV antimicrobial prophylaxis. Pneumo boots were provided for DVT prophylaxis. She was placed in the lithotomy position, padded and secured to the table appropriately. Her genital ia were prepped using Hibiclens and draped in standard fashion. The case was begun using a 22-Mauritanian rigid cystoscope to traverse the urethra and into the bladder with ease. The bladder was decompress ed of some cloudy and rather odiferous urine. The stent was minimally coated with fibrinous debris. As a result, I immediately requested an additional 1 g of ceftriaxone for an expanded antimicrobial coverage, and I removed the left ureteral stent by grasping it and delivering it to the meatus. Via the stent, a Sensor wire was passed with a coil observed fluoroscopically within the putative renal p radha. I then removed the stent over the wire leaving the wire in place, and passed a dual-lumen cat heter over the stent into the mid distal ureter. I then collected a urine culture specimen from the left renal ureteral drainage, before performing a retrograde pyelogram. Left retrograde pyelography: Using a 70:30 mixture of Omnipaque and saline, contrast was injected via the second lumen of the dual -lumen catheter and did delineate the renal pelvis with the wire coiled fluoroscopically within the m id pole. I thus placed a Bentson guidewire into the mid pole of the kidney alongside the indwelling Sensor wire. A pause was then undertaken while we awaited arrival of the gentamicin 1 g from pharmac y, and once it had been administered, I then proceeded. I then removed the dual-lumen catheter, and passed the flexible ureteroscope over the indwelling Bentson guidewire into the upper ureter where a point of obstruction was encountered. The wire was then removed, and pressurized saline irrigation w as used to visualize the region. A stone obstructing in the mid proximal ureter near the UPJ was obs erved. Using a 271 nm laser fiber and power settings of 0.8 joules and 8 hertz, the stone was quickl y fragmented into dust that some of which went into the kidney due to the pressurized irrigation. I then proceeded to enter the renal pelvis and the mid and lower pole segment were identified some of t he stone and continued fragmented. Additional calculi were observed between the mid and the lower po le calices. Where any stone was encountered, it was fragmented. Additional papillary calcifications on the calices, Chriss plaques, were noted and were quickly fragmented and released from their tiss ue localization. In the end, all of the calices had been surveyed and fluoroscopic imagery along wit h repeat antegrade injection of dye was performed to confirm all calices had been properly visualized . With no significant stone fragments, certainly nothing larger than about 0.5 mm in diameter noted, I then surveyed the renal pelvis down through the proximal and mid and distal ureter and out. I then back-loaded the rigid cystoscope over the indwelling safety wire and passed a 6-Mauritanian by 26 c m double-J left ureteral stent with a coil observed fluoroscopically within the upper pole pelvis reg ion because of the very narrowed infundibulum leading to the upper pole separate from the remainder o f the renal pelvis, which with largely to the mid and lower pole calices. An additional coil was obs erved fluoroscopically in the patient's bladder. Her bladder was then left full and I placed a 16-Fr ench Montoya catheter into her bladder to decompress it. The patient was then taken out of the lithoto my position, awakened from general anesthesia, transferred to a stretcher, and then transferred to [facility] recovery room in good condition. Complications: None. Estimated Blood Loss: Negligible. Discharge Disposition: The patient will be discharged with oral Bactrim to which her prior E coli fr om June was sensitive, presuming the current organism suspected may be similar. Given the freque ncy of recurrence of the infection, it would suggest that may be related to the renal calculi potenti ally; so we will assess on followup whether that infection resolves once the stent is removed and the calculi have been completely freed out of her kidneys or at least fragmented. So, she will be disch arged with 10 days of Bactrim along with narcotic pain medication and follow up in 1-2 weeks for cyst oscopy and left ureteral stent extraction in the office. BOB/SALVADOR Voice ID: [id number] Report ID: [id number]
== END 2020-08-25 10:31 | disposition home or self-care (01) ==
LOC: OR 06:34
PROVIDERS: ATTEND Urology
PROC: 0TF78ZZ Fragmentation in Left Ureter, Via Natural or Artificial Opening Endoscopic (ICD-10-PCS; 2020-08-25)
PROC: 0T778DZ Dilation of Left Ureter with Intraluminal Device, Via Natural or Artificial Opening Endoscopic (ICD-10-PCS; principal; 2020-08-25 07:30)
DX: N20.2 Calculus of kidney with calculus of ureter (principal); Z20.822 Contact with and (suspected) exposure to COVID-19
CPT/HCPCS: 87088; 87070; 87086; 88300; 74450; 51610; 53899; 52332; U0003; J2704; J1580; J3010 ×2; J1100; J0696; J7120; J2405 ×2; 87077; 87186

== ENCOUNTER 2022-08-02 07:27 | Day surgery (SDC) | payer OTHER ==
[2022-07-18 14:18] LABS: Potassium 3.7 mmol/L (3.5-5.1)
[2022-07-18 14:24] LABS: Hematocrit 36.5 % (36.0-45.0); Lymphocytes % 41.7 % (15.3-44.8); MCV 87.5 fL (80-100); MPV 7.4 fL (7.6-11.3); RBC Red Blood Cell Count 4.17 M/uL (3.86-4.86)
[2022-07-18 14:25] LABS: Protime INR 0.87
--- NOTE | 2022-07-18 14:40 | RAD REPORT ---
EXAM DESCRIPTION: [facility] Pa And Lat (2 Views)07/18/2022 1:50 pm CLINICAL HISTORY: Pre op pending ESWL COMPARISON: Abdomen 1 View (KUB) dated 04/14/2022; Abdomen 1 View (KUB) dated 08/05/2020; Chest Pa And Lat (2 Views) dated 07/03/2020; Abdomen 1 View (KUB) dated 05/04/2020 TECHNIQUE: PA and lateral views of the chest. FINDINGS: The lungs are clear. No pneumothorax or effusion. The cardiomediastinal contours are unrem arkable. IMPRESSION: No acute cardiopulmonary process.
--- NOTE | 2022-07-19 12:41 | EKG ---
Test Date: 2022-07-18 Test Time: 13:29:44 [place] Kiln Operator: MAYURI MEASUREMENT RESULTS: Intervals: Rate: 77 WV: 156 QRSD: 90 QT: 400 QTc: 452 [place]: P: 60 WV: 156 QRS: 8 T: 67 INTERPRETIVE STATEMENTS: Normal sinus rhythm Normal ECG Compared to ECG 07/03/2020 09:16:34 No significant changes Electronically Signed On 07-19-22 12:39:37 CDT by Robert Lomax
[2022-08-02] MEDS ORDERED: Ringers Lactate 1,000 ML IV ONE (07:50)
[2022-08-02] MEDS ORDERED: CEFAZOLIN SODIUM 1 GM/VIAL ONE (07:50)
[2022-08-02] MEDS ORDERED: propofoL 200 MG/20 ML VIAL IV ONE (08:08)
[2022-08-02] MEDS ORDERED: ONDANSETRON 4 MG/2 ML VIAL ONE (08:09)
[2022-08-02] MEDS ORDERED: FENTANYL CITR 100 MCG/2 ML ONE ×2 (08:09→10:55)
[2022-08-02] MEDS ORDERED: LIDOCAINE 2% MPF 5 ML VIAL ONE (08:09)
[2022-08-02] MEDS ORDERED: MIDAZOLAM HCL 2 MG/2 ML INJ ONE (08:09)
[2022-08-02] MEDS ORDERED: dexAMETHasone 4 MG/ML VIAL ONE (08:10)
[2022-08-02] MEDS ORDERED: CODEINE 30MG/APAP 300MG TAB PO PRN (09:38)
--- NOTE | 2022-08-02 10:23 | RAD REPORT ---
EXAM DESCRIPTION: RAD - Urethrocystogrphy Retrograde - 08/02/2022 9:39 am CLINICAL HISTORY: RT URETERAL STENT PLACEMENT COMPARISON: Urethrocystogrphy Retrograde dated 08/25/2020 FINDINGS/IMPRESSION: Four intraoperative fluoroscopic images were submitted showing cannulation of t he right ureter and placement of a double-J ureteral stent. Left hip arthroplasty. Fluoro time: 0.04 minutes Chemo dose: 0.9 mGy
--- NOTE | 2022-08-02 10:44 | OP ---
Surgeon: ZEB PIERRE Preoperative Diagnoses: 1.Partial staghorn right renal calculus. 2.Right renal mass. 3.Left nephrolithiasis. Postoperative Diagnoses: 1.Partial staghorn right renal calculus. 2.Right renal mass. 3.Left nephrolithiasis. Principal Procedures: 1.Cystoscopy with right ureteral stent placement. 2.Right ESWL, extracorporeal shock wave lithotripsy. Indication For Procedure: Ms. Ruvalcaba is a 72-year-old woman, recurrent stone former with large volum e bilateral nephrolithiasis, larger on the right than on the left. She also had an incidentally disc overed right renal mass that was enhancing and suspicious for malignancy and needed management of her stones. She has elected to proceed with treatment of her right renal mass, but understands from our discussion today that of passage of a stone could complicate the postoperative period following a pa rtial nephrectomy. As a result, she understands the need for staged ESWL and metabolic evaluation to try to rid her of the recurrent stone formation before proceeding with the partial nephrectomy. Procedure In Detail: The patient was consented in the preoperative holding area before being transfe rred to the operative suite where general anesthesia was induced. She was given Ancef 2 g IV antimic robial prophylaxis and pneumo boots were provided for DVT prophylaxis. She was placed initially in t he lithotomy position, padded and secured to the table appropriately and her genitalia were prepped w ith Hibiclens before being draped in standard fashion. The case was begun using a 22-Nigerien rigid cy stoscope to traverse the urethra and into the bladder with ease. The bladder was decompressed of flu id and urine, and there were no obvious papillary mucosal lesions, foreign bodies or stones. The rig ht ureteral orifice was cannulated using a 5-Nigerien ureteral access catheter, and no retrograde pyelo graphy was performed because of the need for subsequent ESWL. As a result, I passed a Sensor wire vi a the 5-Nigerien ureteral access catheter, coiling it in the putative upper pole of the kidney and over the Sensor wire, I passed a 6-Nigerien by 24 cm double-J right ureteral stent with a coil observed flu oroscopically in the putative renal pelvis around the calculi observed and visible fluoroscopically. The patient was then taken out of the lithotomy position, and she was transferred back to the [facility] before being transferred to the shockwave lithotripsy room where the machine in setup was present . Fluoroscopic targeting of the stones was then accomplished after a water bath was placed beneath h er right flank. Because the stone was a staghorn configuration, we did initially target the componen t of the staghorn within the calyces and then targeted the component within the renal pelvis. We sub sequently targeted the component in the right upper pole where there was what appeared to be a separa te calculus that was isolated within the loop of the stent that had been placed. So, after approxima tely 2500 shocks were delivered to the partial staghorn within the lower pole and the calices, an add itional 300 shocks was delivered to the calculus within the renal pelvis and it did quickly fragment. As a result, we turned our attention back to any residual densities within the lower pole calyces a nd completed the last 200 shocks delivered to that region for a total of 3000 shocks. In the end, th e stone did appear to significantly fragment and the patient was transferred to a stretcher before be ing transferred to the recovery room in good condition. Complications: None. Discharge Disposition: She will follow up in the Urology Clinic in about 2 to 3 months' time with a pre clinic KUB to assess for any residual nephrolithiasis on the right and confirmed that on the left . A renal ultrasound will also be arranged to rule out any subcapsular hematoma formation and also t o reassess the size of the right renal mass. She will subsequently require left ESWL and a metabolic evaluation of her recurrent stone forming potential before we can then proceed with treatment of her right renal mass via partial nephrectomy, which she expressed today [place] t she desires. BOB/SALVADOR Voice ID: [id number] Report ID: [id number]
[2022-08-02 10:54] VITALS: O2SAT 94
[2022-08-02] MEDS ORDERED: CODEINE 30MG/APAP 300MG TAB ONE (11:27)
[2022-08-02 11:53] VITALS: BP 129/58; TEMP 97.2
== END 2022-08-02 12:02 | disposition home or self-care (01) ==
LOC: OR 07:27
PROVIDERS: ATTEND Urology
PROC: 0WHR8YZ Insertion of Other Device into Genitourinary Tract, Via Natural or Artificial Opening Endoscopic (ICD-10-PCS; principal; 2022-08-02 08:30)
DX: N20.0 Calculus of kidney (principal); N28.9 Disorder of kidney and ureter, unspecified; I10 Essential (primary) hypertension; E03.9 Hypothyroidism, unspecified; F32.A Depression, unspecified; Z87.440 Personal history of urinary (tract) infections; Z98.84 Bariatric surgery status; Z79.899 Other long term (current) drug therapy; Z88.0 Allergy status to penicillin; Z88.8 Allergy status to other drugs, medicaments and biological substances
CPT/HCPCS: 36415; 50590; 51610; 71046; 74450; 80048; 85025; 85610; 87086; 87088; 93005; J0690; J1100; J2001; J2250; J2405; J2704; J3010; J7120

== ENCOUNTER 2022-10-25 08:16 | Day surgery (SDC) | payer OTHER ==
[2022-10-13 14:59] LABS: Hematocrit 37.3 % (36.0-45.0); Lymphocytes % 35.4 % (15.3-44.8); MCV 87.7 fL (80-100); MPV 6.7 fL (7.6-11.3); RBC Red Blood Cell Count 4.25 M/uL (3.86-4.86)
[2022-10-13 15:05] LABS: Protime INR 0.88
[2022-10-13 15:13] LABS: Potassium 4.3 mEq/L (3.5-5.1)
[2022-10-25] MEDS ORDERED: Ringers Lactate 1,000 ML IV ONE ×2 (08:46→11:38)
[2022-10-25] MEDS ORDERED: MIDAZOLAM HCL 2 MG/2 ML INJ ONE (10:07)
[2022-10-25] MEDS ORDERED: propofoL 200 MG/20 ML VIAL IV ONE (10:07)
[2022-10-25] MEDS ORDERED: FENTANYL CITR 100 MCG/2 ML ONE (10:07)
[2022-10-25] MEDS ORDERED: LIDOCAINE 1% MPF 5 ML VIAL ONE (10:07)
[2022-10-25] MEDS ORDERED: GLYCOPYRROLATE 0.2 MG/ML SYR ONE (10:07)
[2022-10-25] MEDS ORDERED: ONDANSETRON 4 MG/2 ML VIAL ONE (10:08)
[2022-10-25] MEDS ORDERED: dexAMETHasone 10 MG/ML VIAL ONE (10:08)
[2022-10-25] MEDS ORDERED: ROCURONIUM 50 MG/5 ML VIAL IV ONE (10:08)
[2022-10-25] MEDS ORDERED: KETOROLAC 30 MG/ML INJ ONE (10:08)
[2022-10-25] MEDS ORDERED: NEOSTIGMINE 1 MG/ML -10 ML VIAL ONE (10:10)
[2022-10-25] MEDS ORDERED: CEFAZOLIN SODIUM 1 GM/VIAL ONE (10:13)
--- NOTE | 2022-10-25 12:29 | RAD REPORT ---
EXAM DESCRIPTION: RAD - Urethrocystogrphy Retrograde - 10/25/2022 12:11 pm CLINICAL HISTORY: RT LITHO W RT STENT PLACEMENT COMPARISON: None available. FINDINGS: Single fluoroscopic series was sent to PACS, documenting needle positions during an image guided right stent placement and lithotripsy procedure. No radiologist was available for the procedur e, nor will any image interpretation he provided. Please refer to the procedural report for additiona l details. Fluoroscopy time: 1.34 Minutes. IMPRESSION: Documentation of fluoroscopy utilization as above.
[2022-10-25] MEDS: HYDROMORPHONE HCL 1 MG/ML INJ ONE ×2 (12:40→12:45)
[2022-10-25] MEDS ORDERED: PROMETHAZINE INJ 25 MG/ML AMP ONE (12:41)
[2022-10-25] MEDS ORDERED: PHENAZOPYRIDINE 100MG TAB PO ONE ×2 (12:48→13:24)
[2022-10-25] MEDS ORDERED: HYDROCODONE/APAP 5/325 MG TAB PO PRN (12:48)
[2022-10-25] MEDS ORDERED: HYDROCODONE/APAP 5/325 MG TAB ONE (13:25)
[2022-10-25 13:35] VITALS: BP 126/56; TEMP 97.1; O2SAT 97
--- NOTE | 2022-10-25 14:13 | OP ---
Surgeon: ZEB PIERRE Preoperative Diagnoses: 1.Right nephrolithiasis. 2.Recurrent urinary tract infections. 3.Left flank pain. Postoperative Diagnoses: 1.Right nephrolithiasis. 2.Recurrent urinary tract infections. 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 4.Encrusted right ureteral stent. 5.Left flank pain. Principal Procedures: 1.Right ureteroscopy with laser lithotripsy. 2.Ureteroscopic stone basketing, extensive. 3.Cystoscopy with bilateral retrograde pyelographies. 4.Right ureteral stent placement. Indication For Procedure: Ms. Ruvalcaba is a 72-year-old woman, who has an issue with recurrent urinary tract infections, currently on prophylactic antimicrobials. She has been treated with shockwave lit hotripsy for her right-sided nephrolithiasis that was visible fluoroscopically, but despite this, the re were residual stone fragments remnant within the lower pole of her right kidney, and the infection recurred/persisted the moment the antibiotics were stopped. As a result, she was recommended for de finitive management of those residual calculi and renal washout. Procedure In Detail: The patient was consented in the preoperative holding area before being transfe rred to operative suite where general anesthesia was induced. She was given IV antimicrobial prophyl axis and pneumo boots were provided for DVT prophylaxis. She was placed in the lithotomy position, p added and secured to the table appropriately, and her genitalia was prepped with Hibiclens before zoraida ng draped in standard fashion. The case was begun using a 22-Prydeinig rigid cystoscope to traverse the urethra and into the bladder with ease. The bladder was decompressed of fluid and urine, and the ri ght ureteral orifice was noted with an encrusted right ureteral stent emanating. I was able to grasp the tip of the coil of the stent within the bladder and delivered to the meatus, but the wire would not pass up the stent due to internal encrustation. As a result, I cut off the encrusted portion of the stent, but it was still encrusted further into this stent within the ureter. As a result, I left the tip of the stent externalized and passed the cystoscope alongside back into the bladder and inse rted a 5-Prydeinig ureteral access catheter alongside the stent into the mid distal ureter performing a retrograde pyelogram. Of note, the proximal coil of the stent was still somewhat formed within the m id ureter. Right retrograde pyelography: Using a 70:30 mixture of Omnipaque and saline, contrast was injected via the lumen of the 5-Prydeinig ur eteral access catheter and did propagate up a relatively nondilated mid and proximal ureter before en tering the collecting system that seemed to only delineate an upper and mid lower pole calyceal distr ibution system. As a result, I passed a Sensor wire via the 5-Prydeinig ureteral access catheter coilin g it in the left upper pole calyx, and I was then able to remove the 5-Prydeinig ureteral access cathete r as well as the partially encrusted ureteral stent with ease alongside it. I then utilized the same 5-Prydeinig ureteral access catheter to pass a Bentson guidewire up the ureter and coiled it within the collecting system. Over the Bentson guidewire, I passed an 11 x 13-Prydeinig ureteral access sheath al l the way into the proximal ureter at the level of the UPJ. I then passed the flexible ureteroscope over the wire all the way into the collecting system and surveyed each of the calyces as confirmed fl uoroscopically. The upper and mid pole calyces were all surveyed with no additional calculi remnant within. I then surveyed down into the proximal ureter, and within the mid proximal ureter laterally I had noted another ureteral takeoff, which I navigated the ureteroscope into and identified the pres ence of a duplicated collecting system with duplex ureter adjoining proximally. I then surveyed the calyces of that lower pole system and identified the presence of several stones, the largest about 3- 4 mm in diameter. Utilizing a 200 nm laser fiber at power setting of initially 1.0 joules and 15 her tz that was increased to 1.2 before going to 1.5 joules and 15 hertz, the stone was incredibly diffic ult to fragment due to its hardness. After it was divided essentially in half, I then aborted furthe r attempts at laser lithotripsy and instead utilized a 1.9-Prydeinig 0 tip Nitinol basket to go in and p ull out each and every 1 of the discrete fragments of any significant size. This had to be done uret eroscopically over the course of about 6 or 7 different extractions in order to clear the significant stone burden. Once this was done, I then utilized a laser to fragment any smaller calculi into dust smaller than 1 mm in diameter. I then surveyed into the proximal ureter backing the ureteral access sheath out as I went, and identified several additional calculi that had fallen into the mid ureter. Again, I utilized a basket on 3 or 4 different occasions to remove each of those calculi as they we re significant in nature. I then navigated the flexible ureteroscope via the ureteral access sheath and into the lower pole moiety passing a Bentson guidewire into that moiety directly under vision bef ore removing the ureteroscope, the ureteral access sheath confirming no additional stones were within the ureter, and then back-loaded the cystoscope over the indwelling Bentson wire to pass a 6-Prydeinig by 24 cm double-J stent into the lower pole duplicated collecting system moiety. Once successfully p laced it with a coil observed fluoroscopically in her bladder, I then turned my attention to her left side given the history of left flank pain. Left retrograde pyelography: Using a 70:30 mixture of Omnipaque and saline, contrast was injected via the 5-Prydeinig ureteral access catheter inserted into her left distal ureter. The contrast did propagate up a nondilated distal in to the mid and proximal ureter before entering a collecting system that was completely without signs of pelvocaliectasis. Since there was no blunting of the calyces and no specific filling defect, I ob served the drainage of the system and observed rapid ureteral efflux of contrast over the course of a bout 2-3 minutes. As a result, no stent was recommended to be placed on the patient's left side. So I decompressed her bladder of fluid and urine, and took the patient out of the lithotomy position af ter the scope was removed. She was then transferred to a stretcher after being awakened from general anesthesia and then transferred to the recovery room in good condition. Complications: None. Discharge Disposition: She should follow up in the Urology Clinic in about 2 weeks' time to have the right ureteral stent extracted. We may then consider plans for management of her 1.5 cm right renal mass after metabolic assessment is performed to figure out why she forms these recurrent hard stones. We also will reassess for recurrence or persistence of her urinary trac t infection. BOB/MODL Voice ID: [id number] Report ID: [id number]
== END 2022-10-25 13:42 | disposition home or self-care (01) ==
LOC: OR 08:16
PROVIDERS: ATTEND Urology
PROC: 0T768DZ Dilation of Right Ureter with Intraluminal Device, Via Natural or Artificial Opening Endoscopic (ICD-10-PCS; 2022-10-25)
PROC: 0TC68ZZ Extirpation of Matter from Right Ureter, Via Natural or Artificial Opening Endoscopic (ICD-10-PCS; principal; 2022-10-25 09:30)
DX: N20.0 Calculus of kidney (principal); N39.0 Urinary tract infection, site not specified; N28.89 Other specified disorders of kidney and ureter; R10.9 Unspecified abdominal pain
CPT/HCPCS: 87088; 85025; 87086; 80048; 36415; 85610; 88300; 85730; 82360; 74450; 51610; 52356; J2550; J2704; J2710; J2001; J3010; J1100; J1170; J2405; J7120 ×2; J0690; J2250

== ENCOUNTER 2023-10-12 14:27 | Inpatient (IN) | payer OTHER ==
[2023-10-12 16:55] LABS: Absolute Eosinophils 0.2 K/uL (0-0.5); Absolute Lymphocytes (CBC) 1.5 K/uL (0.7-4.9); Absolute Neutrophil 7.5 K/uL (1.8-8.0); Basophils % 0.4 % (0-1.3); Eosinophils % 1.7 % (0-4.4); Hematocrit 33.7 % (36.0-45.0); Hemoglobin 10.8 g/dL (12.0-15.0); MCH 27.2 pg (27.0-35.0); MCV 85.2 fL (80-100); MPV 7.5 fL (7.6-11.3); Monocytes % 10.1 % (3.3-12.3); Neutrophils % 72.8 % (41.7-73.7); Platelets 347 thou/uL (152-406); RBC Red Blood Cell Count 3.96 M/uL (3.86-4.86); Red Cell Distribution Width 15.8 % (12.1-15.2)
[2023-10-12 16:57] LABS: PTT, Activated Partial Thromb 30.1 SECONDS (24.3-36.9)
[2023-10-12 16:58] LABS: PT Prothrombin Time 10.5 SECONDS (9.5-12.5); Protime INR 0.95
[2023-10-12] MEDS ORDERED: ONDANSETRON 4 MG (ODT) TAB PO PRN (16:58)
[2023-10-12] MEDS ORDERED: LOPERAMIDE HCL 2 MG CAPSULE PO PRN (16:58)
[2023-10-12] MEDS ORDERED: ACETAMINOPHEN 325 MG TABLET PO PRN (17:03)
[2023-10-12 17:15] VITALS: BMI 27.3
[2023-10-12] MEDS ORDERED: ONDANSETRON 4 MG/2 ML VIAL IV PRN (17:24)
[2023-10-12 18:35] LABS: ALT/SGPT 16 U/L (13-56); AST/SGOT 12 U/L (15-37); Albumin/Globulin Ratio 0.8 (1.1-1.8); Alkaline Phosphatase 81 U/L (45-117); Anion Gap 8.4 mEq/L (5.0-15.0); BUN Blood Urea Nitrogen 11 mg/dL (7-18); Bicarbonate 28 mEq/L (21-32); Bilirubin Total 0.4 mg/dL (0.2-1.0); Globulin 3.8 g/dL (2.3-3.5); Glomerular Filtration Rate 72 ml/min (=/>90); Glucose Level 104 mg/dL (74-106); Phosphorus 3.2 mg/dL (2.5-4.9); Potassium 3.4 mEq/L (3.5-5.1); Protein, Total 6.8 g/dL (6.4-8.2); Sodium Level 136 mEq/L (136-145)
[2023-10-12 18:49] LABS: Bilirubin Direct < 0.2 mg/dL (0-0.2); Bilirubin Indirect, Calculated 0.2 mg/dL (0.2-0.8)
[2023-10-12] MEDS: ENOXAPARIN 40 MG/0.4 ML SQ SCH (21:09)
[2023-10-12] MEDS: POTASSIUM CL SA 10 MEQ TAB PO ONE (21:10)
--- NOTE | 2023-10-12 21:15 | RAD REPORT ---
EXAM DESCRIPTION: CT - Abdomen Pelvis W Contrast - 10/12/2023 7:38 pm CLINICAL HISTORY: Abd pain COMPARISON: Head Brain Wo Cont dated 03/28/2023bdomen W/Wo Contrast dated 12/26/2022; Abdomen W/Wo C ontrast dated 09/06/2023 TECHNIQUE: Thin cut axial CT imaging of the abdomen and pelvis was performed following intravenous a dministration of 100 mL Isovue 300. Multiplanar reformats were generated and reviewed. All CT scans are performed using dose optimization technique as appropriate and may include automated exposure control or mA/KV adjustment according to patient size. FINDINGS: No suspicious findings in the lung bases. The liver, spleen, adrenal glands, and pancreas show no suspicious findings. Gallbladder and biliary tree are unchanged appearance with stable nonspecific prominence of the common bile duct Symmetric renal function is seen with no hydronephrosis. Small punctate calcifications at the renal p elves, measuring up to 3 mm on the right and 4 mm on the left. Stable exophytic right superior pole 1 .8 x 1.4 cm mass. No dilated bowel loops. Sequelae of Leeann-en-Y gastric bypass and sequelae of distal colectomy again s een. Thickening and hyperenhancement along the proximal appendix and base of the cecum. Ill-defined f luid collection containing fluid and a locule of gas present at the tip of the appendix with marginal enhancement measuring 2.9 x 2.3 cm. No hernia, mass or bulky lymphadenopathy. The urinary bladder is without significant finding. No suspicious bony findings. IMPRESSION: Sequelae of ruptured acute appendicitis, with a collection measuring 2.9 x 2.3 cm at the tip. Other stable findings as above, including a stable exophytic 1.8 cm right superior renal pole mass, s uggestive of renal cell carcinoma. Few small bilateral nonobstructing renal calculi. The findings were communicated to Dr. Kim On 10/12/2023 at 21:06 hours.
[2023-10-12] MEDS: NACHLORIDE 0.45% 1,000 ML IV SCH (21:51)
[2023-10-12] MEDS: HYDROMORPHONE HCL 1 MG/ML INJ IV PRN (21:54)
--- NOTE | 2023-10-12 22:04 | RAD REPORT ---
EXAM DESCRIPTION: US - Abdomen Exam Complete - 10/12/2023 9:01 pm CLINICAL HISTORY: Abd pain COMPARISON: Abdomen Pelvis W Contrast dated 10/12/2023 TECHNIQUE: Sonographic grayscale and color flow images of the abdomen were obtained. FINDINGS: Evaluation of the midline structures reveals normal appearance of the visualized aspects o f the pancreatic head. The visualized aspects of the aorta are of normal caliber. The liver is normal in size with smooth contour. Mildly increased hepatic echogenicity. No focal les ions. No intrahepatic biliary ductal dilation. Spleen is normal in size and shows no focal suspicious findings. Gallbladder shows numerous small shadowing stones and layering sludge. No wall thickening, or pericho lecystic fluid. Common bile duct measures 3 mm in caliber, normal, with no common duct stone identifi ed. No hydronephrosis or suspicious mass in either kidney. Echogenic undulating region along the right re nal medulla, suggestive of focal cortical thinning. Normal-sized kidneys. No echogenic calculi. No ascites or bulky lymphadenopathy. IMPRESSION: Cholelithiasis. Diffuse hepatic steatosis. No other acute findings.
[2023-10-12] MEDS ORDERED: propofoL 200 MG/20 ML VIAL IV ONE (22:58)
[2023-10-12] MEDS: BUPIVACAINE 0.5% PF 10 ML VIAL ONE (22:58)
[2023-10-12] MEDS ORDERED: ROCURONIUM 50 MG/5 ML VIAL IV ONE (22:58)
[2023-10-12] MEDS ORDERED: MIDAZOLAM HCL 2 MG/2 ML INJ ONE (22:59)
[2023-10-12] MEDS ORDERED: FENTANYL CITR 100 MCG/2 ML ONE (22:59)
[2023-10-12] MEDS ORDERED: ONDANSETRON 4 MG/2 ML VIAL ONE (23:00)
[2023-10-12] MEDS ORDERED: KETOROLAC 30 MG/ML INJ ONE (23:00)
[2023-10-12] MEDS: Ringers Lactate 1,000 ML IV ONE (23:00)
[2023-10-12] MEDS ORDERED: GLYCOPYRROLATE 0.2 MG/ML SYR ONE (23:00)
[2023-10-12] MEDS ORDERED: LIDOCAINE 2% MPF 5 ML VIAL ONE (23:00)
[2023-10-12] MEDS ORDERED: NEOSTIGMINE 1 MG/ML -10 ML VIAL ONE (23:02)
[2023-10-12] MEDS ORDERED: dexAMETHasone 4 MG/ML VIAL ONE (23:02)
[2023-10-12] MEDS: METRONIDAZOLE 500mg IVPB 500 MG/100 ML BAG IV ONE (23:15)
[2023-10-12] MEDS: NA CIT/CITRIC AC 30 ML ORAL UDC ONE (23:18)
--- NOTE | 2023-10-12 23:19 | P.CNS ---
Date of Consult: 10/12/23 Reason for consult: Abdominal pain History of present illness: Patient is a 73-year-old female presents to the hospital with 4 to 5 days history of lower abdominal pain which was very bad approximately 4 days ago and then pain improved. Patient does have nausea and vomiting but denies diarrhea, constipation or blood per rectum. Patient denies dysuria or hematuria. Patient denies sore throat, runny nose, cough, headache, dizziness, chest pain, fever or chills. Patient denies anorexia. Patient went to [facility] and had x-rays done and was discharged from the emergency room couple days ago. Patient saw Dr. Kim today who admitted the patient and ordered next CT of the abdomen pelvis which showed perforated acute appendicitis. Incidental findings in the CAT scan also included cholelithiasis and a renal mass. Patient was scheduled to have an ablation of the renal mass next week. Dr. Sears is following the renal mass. Review of systems: Otherwise unremarkable Past medical history: History of hypertension, hyperlipidemia, history of obesity, GERD, neck pain and kidney stones Past surgical history: Gastric bypass surgery, colon resection, partial hysterectomy, bladder sling surgery, right knee and left hip surgery, multiple cystoscopies and stent placement Allergies: Lisinopril, Cipro, amoxicillin and Naprosyn Social history: Patient denies smoking or drinking alcohol Family history: Unknown type of cancer in the mother Vital signs: Stable, afebrile Physical exam: Awake, alert and oriented x 3 Head and neck exam: No masses Chest: Clear Heart: S1-S2 Abdomen: Soft, nondistended, hypoactive bowel sounds, right lower quadrant tenderness with rebound Extremity: Neurovascular intact Neuro: Nonfocal Diagnostic data: Laboratory data reviewed, CT and ultrasound reviewed Assessment: Acute appendicitis with perforation. Incidental finding of cholelithiasis and renal mass Plan/recommendation: Admit, n.p.o., IV fluids, IV antibiotics and to the OR for laparoscopic appendectomy possible open. Patient and family understand risk, benefits and alternatives and agree to procedure. Renal mass will be managed as an outpatient. Patient is asymptomatic from her cholelithiasis at this time. CC: Dr. Kim's office
[2023-10-12] MEDS: CEFOXITIN SODIUM 1 GM/VIAL ONE (23:35)
--- NOTE | 2023-10-12 23:35 | RAD REPORT ---
EXAM DESCRIPTION: RAD - Chest Pa And Lat (2 Views) - 10/12/2023 7:49 pm CLINICAL HISTORY: Hypertension. Abdominal pain COMPARISON: Chest Pa And Lat (2 Views) dated 07/18/2022; Abdomen 1 View (KUB) dated 04/14/2022; Abdome n 1 View (KUB) dated 08/05/2020; Abdomen Pelvis W Contrast dated 10/12/2023 TECHNIQUE: PA and lateral views of the chest were obtained. FINDINGS: The lungs are clear. Heart size is normal and central vasculature is within normal limits. No pleural effusion or pneumothorax seen. No acute bony finding noted. IMPRESSION: No acute cardiopulmonary process.
[2023-10-13] MEDS: METRONIDAZOLE 500mg IVPB 500 MG/100 ML BAG IV SCH
--- NOTE | 2023-10-13 00:21 | P.OP ---
Date of Service: 10/13/23 Preop diagnosis: Acute appendicitis with perforation Postop diagnosis: Same with abscess Procedure performed: Laparoscopic appendectomy, drainage of intraabdominal abscess Surgeon: Henri Chaney MD Visual Associate: eL CARR Estimated blood loss: Minimal Specimen: Pus and appendix Findings: As above Anesthesia: General Complications: None Drains: SUZI #10 flat Fluids and blood products: Nonapplicable Disposition: Recovery room Operative note: Patient brought to the OR and placed in supine position. General anesthesia began. Patient prepped and draped in usual sterile fashion. Marcaine 0.5% infiltrated locally. 15 blade used to make a 1 cm infraumbilical midline incision. Subcutaneous tissue divided and fascia identified and divided. Bleeding controlled with cautery. #1 Vicryl stay suture placed into the fascia. 12 mm trocar placed into the peritoneal cavity under direct vision. Pneumoperitoneum established. Two 5 mm trocars placed under direct vision. 1 trocar placed in the suprapubic region and the other in the left lower quadrant. Laparoscopy revealed acute inflammation of the appendix on the proximal part and a contained abscess at the tip of the appendix. Fluid from the abscess aspirated and cultures done. Mesoappendix divided with LigaSure. Base of the appendix on the cecum clearly identified. Endo GENE stapling device used to divide the base of the appendix. The appendix removed via Endo Catch bag. Right lower quadrant pelvis thoroughly irrigated. No evidence of bleeding or b owel injury appreciated. Tevin-Salomon drain #10 flat placed and secured with 3-0 nylon. The drain was in the pelvis in the right lower quadrant. All trocars removed under direct vision. Stay sutures tied to each other to reapproximate the fascial defect. Subcutaneous wounds irrigated and bleeding controlled cautery. Ruth used to close skin. Sterile dressing applied. Patient awakened and taken to recovery room in good general condition. CC: Dr. Kim's office
[2023-10-13] MEDS: CEFOXITIN 1 GM in NA CHLORIDE 0.9% 50 ML IVPB SCH (01:00)
[2023-10-13 04:27] LABS: Absolute Lymphocytes (CBC) 0.4 K/uL (0.7-4.9); Absolute Monocytes 0.7 K/uL (0.1-1.3); Absolute Neutrophil 7.7 K/uL (1.8-8.0); Basophils % 0.2 % (0-1.3); Eosinophils % 0.2 % (0-4.4); Hematocrit 31.4 % (36.0-45.0); Hemoglobin 10.2 g/dL (12.0-15.0); Lymphocytes % 4.4 % (15.3-44.8); MCH 27.7 pg (27.0-35.0); MCHC 32.6 g/dL (32.0-36.0); MPV 8.1 fL (7.6-11.3); Monocytes % 8.4 % (3.3-12.3); Neutrophils % 86.8 % (41.7-73.7); Platelets 302 thou/uL (152-406); Red Cell Distribution Width 16.1 % (12.1-15.2)
[2023-10-13 04:34] LABS: Anion Gap 5.4 mEq/L (5.0-15.0); Magnesium 1.8 mg/dL (1.6-2.4); Potassium 4.4 mEq/L (3.5-5.1)
[2023-10-13] MEDS: TRAMADOL HCL 50 MG TAB PO PRN (05:15)
[2023-10-13 05:21] LABS: Band Neutrophils 21 % (0-1); Blood Morphology Comment NOT SEEN (NOT SEEN); Differential Total Cells Count 100; Eosinophils 1 % (0-3); Lymphocytes 4 % (15-42); Monocytes 6 % (0-10); Platelet Estimate ADEQ; Segmented Neutrophils 68 % (40-80)
[2023-10-13 05:49] LABS: Calcium Oxalate Crystals- Ur Few /HPF (None Seen); Sqamous Epithelial <5 /HPF (None Seen); Urine Bacteria None Seen /HPF (<20); Urine Bilirubin NEGATIVE (Negative); Urine Blood Negative (Negative); Urine Clarity Clear (Clear); Urine Color Light-Yellow (Yellow); Urine Culture Reflex Order NOT NEEDED; Urine Glucose NEGATIVE (Negative); Urine Ketones NEGATIVE (Negative); Urine Microscopic Reflex YN ORDER UMIC; Urine Mucus Slight /HPF (None Seen); Urine Nitrite NEGATIVE (Negative); Urine Protein NEGATIVE (Negative); Urine RBC <5 /HPF (None Seen); Urine Urobilinogen Normal (Normal); Urine WBC <5 /HPF (<5)
[2023-10-13 05:50] LABS: Specific Gravity > 1.030 (1.005-1.030)
[2023-10-13] MEDS: MAGNESIUM SULFATE 1 gm IVPB 1 GM/100 ML BAG IV ONE (09:59)
[2023-10-13] MEDS: HYDROCODONE/APAP 7.5/325 MG TAB PO PRN (10:31)
--- NOTE | 2023-10-13 15:53 | PN ---
Date of Progress Note: 10/13/2023 Subjective: Patient is awake, alert. Pain is controlled. Objective: Vital Signs: Stable. She is afebrile. Her drain has put out 60 cc of serosanguineous fluid. White count is normal. Neutrophil percentage is 86.8. H and H is stable. Assessment: Status post laparoscopic appendectomy for perforated acute appendicitis. Recommendations: Continue IV antibiotics. Encouraged ambulation and incentive spirometry. Advance diet as tolerated. The patient is clinically stable and slowly improving. Anticipate in the hospita for at least 24 to 48 hours depending upon her clinical response to our treatment. /MODL Voice ID: [id number] Report ID: [id number]
[2023-10-13] MEDS: POLYETHYL GLY 3350 17 GM/DOSE PO PRN (17:04)
--- NOTE | 2023-10-13 22:31 | P.PN ---
Subjective Date of Service: 10/13/23 Chief Complaint: ABDOMEN AIN Subjective: Improving DHARA HAD GONE TO [facility] FOR ABDOMEN PAIN. SHE LIVES THERE. DOCTOR NEVER TOUCHED HER ABDOMEN, DID X RAYS AND SENT HER HOME. SHE CAME TO MY OFFICE NEXT DAY. SHE WAS VERY TENDER IN LOWER ABDOMEN WITH GUARDING. I DID STAT CT AFTER ADMISSION. RADIOLOGIST CALLED ME THAT SHE HAS RUPTURED AND CONTAINED APPENDDIX. I CALLED DR. GRUBBS RIGHT AWAY AND HE DID EMERGENCY SURGERY LAST NIGHT. THIS AM SHE IS DOING GREAT. Review of Systems 10-point ROS is otherwise unremarkable Physical Examination - Vital Signs Temperature: 98.5 F Blood Pressure: 125/57 Pulse: 89 Respirations: 16 Pulse Ox (%): 96 - Physical Exam General: Mild distress HEENT: Atraumatic, PERRLA, EOMI Neck: Supple, JVD not distended Respiratory: Clear to auscultation bilaterally, Normal air movement Cardiovascular: Regular rate/rhythm, Normal S1 S2 Gastrointestinal: Normal bowel sounds, No tenderness Musculoskeletal: No tenderness Integumentary: No rashes Neurological: Normal speech, Normal tone, Normal affect Lymphatics: No axilla or inguinal lymphadenopathy - Studies Laboratory Data (last 24 hrs) 10/13/23 10/13/23 03:41 03:41 WBC 8.90 Hgb 10.2 L Hct 31.4 L Plt Count 302 Sodium 136 Potassium 4.4 D BUN 11 Creatinine 0.72 Glucose 167 H Magnesium 1.8 Medications List Reviewed: Yes Assessment And Plan - Current Problems (Diagnosis) (1) Appendicular abscess Current Visit: Yes Status: Acute Plan: TERRA LOZADA DAY ONE NOW. DID WELL IF NO ILEUS, SHE WILL GO HOME IN AM. SHE HAS OTHER ISSUES OF ADHD, HTN, DJD STABLE WITH MEDS.
[2023-10-14 03:33] LABS: Anion Gap 5.1 mEq/L (5.0-15.0); Magnesium 1.9 mg/dL (1.6-2.4); Phosphorus 3.7 mg/dL (2.5-4.9); Potassium 4.1 mEq/L (3.5-5.1)
--- NOTE | 2023-10-14 10:55 | PN ---
Date of Progress Note: 10/14/2023 Subjective: The patient is awake, alert. No complaint. Tolerating diet. Pain controlled. Objective: Vital Signs: Stable, afebrile. Abdomen: Benign. Skin: SUZI drain put out 125 cc of serosanguineous fluid. Assessment: Status post laparoscopic appendectomy for perforated appendicitis with an abscess. Recommendation: Likely discharge in a.m., on oral antibiotics. Can take the drains out in the offic e. The patient encouraged to ambulate and use incentive spirometry. Continue IV antibiotics. The p atient is clinically doing well. /MODL Voice ID: [id number] Report ID: [id number]
--- NOTE | 2023-10-14 14:17 | P.PN ---
Subjective Date of Service: 10/14/23 Chief Complaint: ABDOMEN AIN Subjective: Improving DHARA HAD GONE TO [facility] FOR ABDOMEN PAIN. SHE LIVES THERE. DOCTOR NEVER TOUCHED HER ABDOMEN, DID X RAYS AND SENT HER HOME. SHE CAME TO MY OFFICE NEXT DAY. SHE WAS VERY TENDER IN LOWER ABDOMEN WITH GUARDING. I DID STAT CT AFTER ADMISSION. RADIOLOGIST CALLED ME THAT SHE HAS RUPTURED AND CONTAINED APPENDDIX. I CALLED DR. GRUBBS RIGHT AWAY AND HE DID EMERGENCY SURGERY LAST NIGHT. THIS AM SHE IS DOING GREAT. SHE IS NOT FALLING GOOD YESTERDAY. SHE PASSES SOME GAS. NO BM YET. Review of Systems 10-point ROS is otherwise unremarkable Physical Examination - Vital Signs Temperature: 96.9 F Blood Pressure: 134/61 Pulse: 88 Respirations: 18 Pulse Ox (%): 93 - Physical Exam General: Oriented x3, Mild distress HEENT: Atraumatic, PERRLA, EOMI Neck: Supple, JVD not distended Respiratory: Clear to auscultation bilaterally, Normal air movement Cardiovascular: Regular rate/rhythm, Normal S1 S2 Gastrointestinal: Normal bowel sounds, No tenderness (SOFT) Musculoskeletal: No tenderness Integumentary: No rashes Neurological: Normal speech, Normal tone, Normal affect Lymphatics: No axilla or inguinal lymphadenopathy - Studies Laboratory Data (last 24 hrs) 10/14/23 02:37 Sodium 134 L Potassium 4.1 BUN 15 Creatinine 0.82 Glucose 150 H Phosphorus 3.7 Magnesium 1.9 Microbiology Data (last 24 hrs): 10/13/23 00:11 Wound - Peritoneal Fluid Gram Stain - Final 10/13/23 00:11 Wound - Peritoneal Fluid Gram Stain - Final Medications List Reviewed: Yes Assessment And Plan - Current Problems (Diagnosis) (1) Appendicular abscess Current Visit: Yes Status: Acute Plan: SP MOUNARY DAY ONE NOW. DID WELL IF NO ILEUS, SHE WILL GO HOME IN AM. SHE HAS OTHER ISSUES OF ADHD, HTN, DJD STABLE WITH MEDS. NEEDS ONE MORE DAY FOR RECOVERY MAY GO HOME IN AM.
[2023-10-14] MEDS: DIPHENHYDRAMINE 25 MG TAB/CAP PO PRN (19:58)
[2023-10-14 20:19] VITALS: O2SAT 97
[2023-10-15 09:13] VITALS: BP 132/67; TEMP 98
--- NOTE | 2023-10-15 11:02 | PN ---
Date of Progress Note: 10/15/2023 Subjective: Patient is awake, alert, tolerating diet, ambulating, pain controlled on p.o. pain medic ations, vitals stable, afebrile. Dressing clean, dry, intact. Minimal drainage from the SUZI drain ov er the last shift, only 15 cc. Assessment: Status post laparoscopic appendectomy for perforated appendicitis with abscess. Recommendations: We will discontinue the SUZI drain. Patient will be discharged home. Discharge inst ructions given. She will be on Ceftin and Flagyl and follow up with me in 1 week. /MODL Voice ID: [id number] Report ID: [id number]
[2023-10-17 14:23] LABS: 1,25 Dihydroxy Vitamin D3 92 pg/mL; Vitamin D 1,25-Dihydroxy Total 92 pg/mL (18-72); Vitamin D,1,25-OH2, D2 <8 pg/mL
== END 2023-10-15 10:49 | disposition home or self-care (01) | DRG 399 ==
LOC: 2ND 14:27 → OBSVTOIN 10-13 11:57
PROVIDERS: ADMIT Internal Medicine; ATTEND Internal Medicine
PROC: 0DTJ4ZZ Resection of Appendix, Percutaneous Endoscopic Approach (ICD-10-PCS; principal; 2023-10-13)
PROC: 0W9F4ZZ Drainage of Abdominal Wall, Percutaneous Endoscopic Approach (ICD-10-PCS; 2023-10-13)
DX: K35.33 Acute appendicitis with perforation, localized peritonitis, and gangrene, with abscess (principal); I10 Essential (primary) hypertension; E78.5 Hyperlipidemia, unspecified; K59.00 Constipation, unspecified; M19.90 Unspecified osteoarthritis, unspecified site; F90.9 Attention-deficit hyperactivity disorder, unspecified type; K21.9 Gastro-esophageal reflux disease without esophagitis; N28.89 Other specified disorders of kidney and ureter; J44.9 Chronic obstructive pulmonary disease, unspecified; K80.20 Calculus of gallbladder without cholecystitis without obstruction; Z90.3 Acquired absence of stomach [part of]; Z88.1 Allergy status to other antibiotic agents; Z88.8 Allergy status to other drugs, medicaments and biological substances; Z90.49 Acquired absence of other specified parts of digestive tract; Z90.711 Acquired absence of uterus with remaining cervical stump
CPT/HCPCS: 36415; 71046; 74177; 76700; 80048; 80076; 81001; 82607; 82652; 83735; 84100; 84443; 85025; 85610; 85730; 87070; 87075; 87077; 87186; 87205; 88304; 94010; 94760; G0378; G0379; J0694; J1100; J1170; J1650; J2001; J2250; J2405; J2704; J2710; J3010; J3475; J7120; Q9967

== ENCOUNTER 2024-07-29 07:21 | Day surgery (SDC) | payer OTHER ==
--- NOTE | 2024-07-26 15:47 | RAD REPORT ---
EXAMINATION: TWO VIEW CHEST XR CLINICAL INDICATION: Pre-op pending cholecystectomy TECHNIQUE: 2 views of the chest was performed. COMPARISON: 10/12/2023 FINDINGS: The lungs are well inflated and clear. The heart is upper limit of normal in size. No displaced fract ures evident. IMPRESSION: No acute or significant abnormalities.
[2024-07-26 15:57] LABS: Absolute Basophils 0.1 K/uL (0-0.5); Absolute Eosinophils 0.2 K/uL (0-0.5); Absolute Lymphocytes (CBC) 2.3 K/uL (0.7-4.9); Absolute Monocytes 0.6 K/uL (0.1-1.3); Absolute Neutrophil 3.9 K/uL (1.8-8.0); Basophils % 0.9 % (0-1.3); Eosinophils % 2.7 % (0-4.4); Hematocrit 30.3 % (36.0-45.0); Hemoglobin 9.7 g/dL (12.0-15.0); Lymphocytes % 32.6 % (15.3-44.8); MCH 24.8 pg (27.0-35.0); MCHC 31.9 g/dL (32.0-36.0); MCV 77.9 fL (80-100); MPV 7.8 fL (7.6-11.3); Monocytes % 8.9 % (3.3-12.3); Neutrophils % 54.9 % (41.7-73.7); Nucleated Red Blood Cells % 0.1 % (0-0); Platelets 383 thou/uL (152-406); RBC Red Blood Cell Count 3.89 M/uL (3.86-4.86); Red Cell Distribution Width 15.9 % (12.1-15.2)
[2024-07-26 16:14] LABS: ALT/SGPT 16 U/L (13-56); AST/SGOT 13 U/L (15-37); Albumin/Globulin Ratio 0.8 (1.1-1.8); Alkaline Phosphatase 81 U/L (45-117); Anion Gap 5.1 mEq/L (5.0-15.0); BUN Blood Urea Nitrogen 17 mg/dL (7-18); Bicarbonate 31 mEq/L (21-32); Bilirubin Total 0.2 mg/dL (0.2-1.0); Globulin 3.6 g/dL (2.3-3.5); Glomerular Filtration Rate 67 ml/min (=/>90); Glucose Level 95 mg/dL (74-106); Lipase 33 U/L (13-75); Potassium 4.1 mEq/L (3.5-5.1); Protein, Total 6.6 g/dL (6.4-8.2); Sodium Level 138 mEq/L (136-145)
[2024-07-26 16:15] LABS: Bilirubin Direct < 0.2 mg/dL (0-0.2)
[2024-07-29] MEDS ORDERED: propofoL 200 MG/20 ML VIAL IV ONE (07:57)
[2024-07-29] MEDS ORDERED: ROCURONIUM 50 MG/5 ML VIAL IV ONE (07:57)
[2024-07-29] MEDS ORDERED: FENTANYL CITR 100 MCG/2 ML ONE (07:57)
[2024-07-29] MEDS ORDERED: LIDOCAINE 2% MPF 5 ML VIAL ONE (07:58)
[2024-07-29] MEDS ORDERED: ONDANSETRON 4 MG/2 ML VIAL ONE (07:58)
[2024-07-29] MEDS: CEFOXITIN SODIUM 1 GM/VIAL ONE (08:18)
[2024-07-29] MEDS ORDERED: Phenylephrine HCl 10 MG/ML 1 ML VIAL ONE (08:53)
[2024-07-29] MEDS ORDERED: Mastisol Adhesive Liq ONE (08:53)
[2024-07-29] MEDS ORDERED: EPHEDRINE SULF 50 MG/ML VIAL ONE (08:55)
[2024-07-29] MEDS ORDERED: dexAMETHasone 4 MG/ML VIAL ONE (09:00)
[2024-07-29] MEDS ORDERED: SUGAMMADEX SODIUM 200 MG/2 ML VIAL IV ONE (09:07)
--- NOTE | 2024-07-29 09:17 | P.OP ---
Date of Service: 07/29/24 Preop diagnosis: Chronic cholecystitis and cholelithiasis Postop diagnosis: Same with adhesions Procedure performed: Laparoscopic cholecystectomy, lysis of adhesions Surgeon: Henri Chaney MD Icer Machine: None Estimated blood loss: Minimal Specimen: Gallbladder Findings: As above Anesthesia: General Complications: None Drains: None Fluids and blood products: Nonapplicable Disposition: Recovery room Operative note: Patient brought to the OR placed in supine position. General anesthesia began. Patient prepped and draped in usual sterile fashion. Marcaine 0.5% obtained locally. 15 blade used to make a 1 cm infraumbilical midline incision. Subcutaneous tissue divided and bleeding controlled with cautery. Fascia identified and divided. #1 Vicryl stay suture placed. Peritoneal cavity entered with sharp and blunt dissection. 12 mm trocar placed into the peritoneal cavity under direct vision. Pneumoperitoneum established. Three 5 mm trocars placed under direct vision. 1 trocar placed in the epigastric region just to the right of midline. 2 trocars placed in the right subcostal region. Laparoscopy revealed omental adhesions to the gallbladder. LigaSure used to take down the adhesions. Approximately 10 minutes utilized to lyse adhesions. Fundus identified and retracted superiorly. Infundibulum iden tified and retracted inferolaterally. Cystic duct cystic artery identified with blunt dissection. Clips placed and both structures divided. Cautery used to remove the gallbladder from the liver bed. Gallbladder retrieved to the mucous via Endo Catch bag. Right upper quadrant examined. No evidence of bleeding or bile leakage appreciated. All trocars removed under direct vision. Stay sutures tied to each other reapproximate the fascial defect. Subcutaneous was irrigated and bleeding controlled cautery. 3-0 chromic used to close subcutaneous tissue and skin. Sterile dressing applied. Patient awakened and taken to recovery room in good general condition. CC: Dr. Kim's office
[2024-07-29] MEDS: Ringers Lactate 1,000 ML IV ONE (09:18)
[2024-07-29] MEDS: FENTANYL CITR 100 MCG/2 ML ONE (09:34)
[2024-07-29] MEDS: HYDROMORPHONE HCL 1 MG/ML INJ ONE (09:54)
[2024-07-29 10:04] VITALS: TEMP 97.7; O2SAT 98
[2024-07-29] MEDS ORDERED: HYDROCODONE/APAP 7.5/325 MG TAB ONE (11:00)
[2024-07-29] MEDS: HYDROCODONE/APAP 7.5/325 MG TAB PO PRN (11:04)
[2024-07-29 11:36] VITALS: BP 102/52
--- NOTE | 2024-07-29 12:08 | EKG ---
Test Date: 2024-07-26 Test Time: 15:27:36 Radiotelegraph Operator Servicer: MAYURI MEASUREMENT RESULTS: Intervals: Rate: 81 CO: 152 QRSD: 88 QT: 386 QTc: 448 [place]: P: 56 CO: 152 QRS: 20 T: 72 INTERPRETIVE STATEMENTS: Normal sinus rhythm Normal ECG Compared to ECG 07/18/2022 13:29:44 No significant changes Electronically Signed On 07-29-24 12:02:38 CDT by Sae Hogue
== END 2024-07-29 11:34 | disposition home or self-care (01) ==
LOC: OR 07:21
PROVIDERS: ATTEND Surgery
PROC: 0FT44ZZ Resection of Gallbladder, Percutaneous Endoscopic Approach (ICD-10-PCS; principal; 2024-07-29 08:30)
DX: K80.10 Calculus of gallbladder with chronic cholecystitis without obstruction (principal)
CPT/HCPCS: 93005; 85025; 80048; 36415; 80076; 88304; 83690; 71046; 47562; J2704; J1100; J2371; J2003; J3010 ×2; J1171; J0694; J2405; J7120

== ENCOUNTER 2024-09-04 05:40 | Inpatient (IN) | payer OTHER ==
[2024-09-04 06:19] LABS: Absolute Eosinophils 0.1 K/uL (0-0.5); Absolute Lymphocytes (CBC) 1.1 K/uL (0.7-4.9); Absolute Monocytes 0.6 K/uL (0.1-1.3); Absolute Neutrophil 4.6 K/uL (1.8-8.0); Basophils % 0.6 % (0-1.3); Eosinophils % 1.9 % (0-4.4); Hematocrit 28.3 % (36.0-45.0); Hemoglobin 9.1 g/dL (12.0-15.0); Lymphocytes % 17.5 % (15.3-44.8); MCH 24.1 pg (27.0-35.0); MCHC 32.3 g/dL (32.0-36.0); MCV 74.7 fL (80-100); MPV 7.1 fL (7.6-11.3); Monocytes % 9.5 % (3.3-12.3); Neutrophils % 70.5 % (41.7-73.7); Platelets 312 thou/uL (152-406); RBC Red Blood Cell Count 3.79 M/uL (3.86-4.86); Red Cell Distribution Width 16.2 % (12.1-15.2)
[2024-09-04] MEDS ORDERED: MORPHINE 4 MG/ML SYR ONE ×2 (06:19→10:41)
[2024-09-04] MEDS ORDERED: droPERidol 5 MG/2 ML VIAL ONE (06:19)
[2024-09-04] MEDS ORDERED: ONDANSETRON 4 MG/2 ML VIAL ONE ×3 (06:19→13:56)
[2024-09-04] MEDS ORDERED: NA CHLORIDE 0.9% 500 ML ONE (06:19)
[2024-09-04 06:33] LABS: ALT/SGPT 15 U/L (13-56); Albumin 3.1 g/dL (3.4-5.0); Albumin/Globulin Ratio 0.9 (1.1-1.8); Alkaline Phosphatase 78 U/L (45-117); Anion Gap 6.4 mEq/L (5.0-15.0); BUN Blood Urea Nitrogen 13 mg/dL (7-18); Bicarbonate 29 mEq/L (21-32); Bilirubin Total 0.4 mg/dL (0.2-1.0); Globulin 3.5 g/dL (2.3-3.5); Glomerular Filtration Rate 59 ml/min (=/>90); Glucose Level 133 mg/dL (74-106); Lipase 23 U/L (13-75); Potassium 3.4 mEq/L (3.5-5.1); Protein, Total 6.6 g/dL (6.4-8.2); Sodium Level 140 mEq/L (136-145)
[2024-09-04 06:37] LABS: AST/SGOT < 10 U/L (15-37)
--- NOTE | 2024-09-04 07:45 | RAD REPORT ---
EXAMINATION: Abdomen Pelvis W Contrast CLINICAL INDICATION: Female, 74 years old.right lower abdominal pain TECHNIQUE: CT abdomen and pelvis was performed, after the administration of IV contrast, [facility]. Axial, sagittal and coronal reconstructions were obtained. One or more of the following dose reduction techniques were used: Automated exposure control, adjustment of the mA and/o r kV according to patient size, and/or iterative reconstruction. Unless otherwise specified, incidental findings do not require dedicated imaging follow-up. [id number]. COMPARISON: 10/12/2023 FINDINGS: LOWER CHEST: Trace pleural effusions with probably dependent atelectasis.Mild cardiomegaly. Small hia preeti hernia with circumferential thickening of the esophagus which could reflect esophagitis. Mitral annular calcifications. UPPER GI: Leeann-en-Y gastric bypass. LIVER: Intrahepatic biliary duct dilatation is similar. No focal mass. GALLBLADDER/BILE DUCTS: Cholecystectomy. Moderate extrahepatic biliary ductal dilatation. This could be secondary to the post-cholecystectomy state. Recommend correlation with LFT's. If abnormal, consider MRCP for further evaluation. ? PANCREAS: Atrophy but no acute findings. SPLEEN: Unremarkable. ADRENALS: No adrenal masses. KIDNEYS AND URETERS: No hydronephrosis.Partial nephrectomy.Nonobstructing renal calculi.No ureteral c alculi. ABDOMINAL AORTA AND OTHER VESSELS: Mild atherosclerotic changes. PERITONEUM: Fluid collection in the right lower quadrant along the terminal ileum within the mesenter ic fat and extending into the right inguinal canal which measures 4.1 x 2.3 x 2.6 cm. This has an enhancing somewhat irregular wall. LYMPH NODES: No pathologic lymphadenopathy. ABDOMINAL WALL: Fat-containing right inguinal hernia. SMALL BOWEL/COLON: Small bowel has normal course and caliber. No colonic wall thickening or pericolon ic inflammatory changes.Appendix absent. Partial small bowel resection. URINARY BLADDER: Underdistended but grossly unremarkable. REPRODUCTIVE ORGANS: No pathologic process. MUSCULOSKELETAL: Left hip arthroplasty. ADDITIONAL FINDINGS: None. IMPRESSION: Enhancing fluid collection in the right lower quadrant along the terminal ileum which extends into th e right inguinal canal. The exact etiology of this fluid is uncertain. If the patient had prior surgery at this location likely hernia repair, it could be postoperative. It could also reflect some infarcted mesenteric fat that may have become superinfected. The patient has had a prior appendectomy. This would be amenable to ultrasound-guided aspiration and possible drain placement if indicated. Other findings as noted above.
[2024-09-04] MEDS ORDERED: NACHLORIDE 0.45% 1,000 ML IV ONE (10:41)
--- NOTE | 2024-09-04 10:42 | EDPHYS ---
Physician Documentation [facility] Name: Clair Ruvalcaba Age: 74 yrs Sex: Female : 1950 Arrival Date: 09/04/2024 Time: 05:40 Bed 8 Private MD: Jorge Kim V ED Physician Rafaela Mathis HPI: 09/04 05:48 This 74 yrs old Female presents to ER via Unassigned with complaints of sp4 Abdominal Pain. 07:11 Patient is a very pleasant 74-year-old female with history of chronic back pain sp4 hypertension hypothyroidism. Patient presents today right lower quadrant abdominal pain starting 3 days ago and worsening. Denied nausea. Patient states she has history of cholecystectomy and appendectomy. Also history of right renal mass resection. . Historical: - Allergies: 06:11 Lisinopril; cp4 06:11 PENICILLINS; cp4 - PMHx: 06:11 chronic back pain; Hypertension; Hypothyroidism; cp4 - Immunization history:: Adult Immunizations up to date. - Infectious Disease History:: Denies. - Social history:: Smoking status: Patient denies any tobacco usage or history of. - Family history:: not pertinent. ROS: 07:11 Constitutional: Negative for fever, chills, and weight loss, positive right lower sp4 quadrant abdominal pain 07:11 All other systems are negative, Exam: 07:11 Constitutional: This is a well developed, well nourished patient who is awake, alert, sp4 and in no acute distress. Head/Face: Normocephalic, atraumatic. Eyes: Pupils equal round and reactive to light, extra-ocular motions intact. Lids and lashes normal. Conjunctiva and sclera are not injected. Cornea within normal limits. Periorbital areas with no swelling, redness, or edema. ENT: Nares patent. No nasal discharge, no septal abnormalities noted. Tympanic membranes are normal and external auditory canals are clear. Oropharynx with no redness, swelling, or masses, exudates, or evidence of obstruction, uvula midline. Mucous membranes moist. Neck: Trachea midline, no thyromegaly or masses palpated, and no cervical lymphadenopathy. Supple, full range of motion without nuchal rigidity, or vertebral point tenderness. Chest/axilla: Normal chest wall appearance and motion. Nontender with no deformity. No lesions are appreciated. Cardiovascular: Regular rate and rhythm with a normal S1 and S2. No gallops, murmurs, or rubs. Normal PMI, no JVD. No pulse deficits. Respiratory: Lungs have equal breath sounds bilaterally, clear to auscultation and percussion. No rales, rhonchi or wheezes noted. No increased work of breathing, no retractions or nasal flaring. Abdomen/GI: Soft, with normal bowel sounds. No distension or tympany. No guarding , positive for right lower quadrant abdominal tenderness, positive prominent rebound sign Back: No spinal tenderness. No costovertebral tenderness. Skin: Warm, dry with normal turgor. Normal color with no rashes, no lesions, and no evidence of cellulitis. MS/ Extremity: Pulses equal, no cyanosis. Neurovascular intact. Full, normal range of motion. Neuro: Awake and alert, GCS 15, oriented to person, place, time, and situation. Cranial nerves II-XII grossly intact. Motor strength 5/5 in all extremities. Sensory grossly intact. Psych: Awake, alert, with orientation to person, place and time. Behavior, mood, and affect are within normal limits Vital Signs: 06:10 BP 146 / 92; Pulse 91; Resp 18; Temp 98.2; Pulse Ox 95% ; Weight 65.77 kg; Height 5 ft. cp4 0 in. ; Pain 7/10; 07:26 BP 142 / 74; Pulse 86; Resp 18; Pulse Ox 95% on R/A; ph 09:00 BP 138 / 78; Pulse 97; Resp 18; Pulse Ox 97% on R/A; ph 10:00 BP 141 / 76; Pulse 89; Resp 18; Pulse Ox 99% on R/A; ph 12:18 BP 119 / 68; Pulse 92; Resp 16; Pulse Ox 99% ; dd2 19:00 BP 131 / 63; Pulse 97; Resp 16; Pulse Ox 98% ; al5 06:10 Body Mass Index 28.32 (65.77 kg, 152.4 cm) cp4 06:10 Pain Scale: Adult cp4 Cydney Coma Score: 07:11 Eye Response: spontaneous(4). Motor Response: obeys commands(6). Verbal Response: sp4 oriented(5). Total: 15. MDM: 05:49 Medical Screening Exam initiated sp4 07:13 Differential diagnosis: bowel obstruction, diverticulitis, gastritis, Hepatitis, sp4 pancreatitis. Data reviewed: vital signs, nurses notes, old medical records, lab test result(s), radiologic studies, CT scan. Consideration of Admission/Observation Escalation of care including admission/observation considered. Transition of care: After a detail discussion of the patient's case, care is transferred to Rafaela Mathis MD. 10:45 ED course: 74-year-old female with right lower quadrant tenderness looks to be an gb1 abscess from the terminal ileum. Dr. Stiles deemed this nonoperative in the operating room at this time. I discussed the case with Dr. Yanez the interventional radiologist and he will ultrasound-guided drain this mass. Patient admitted to the hospital by Dr. Loo.. 09/04 05:49 Order name: CBC with Diff; Complete Time: 07:08 sp4 09/04 05:49 Order name: CMP; Complete Time: 07:08 sp4 09/04 05:49 Order name: Lipase; Complete Time: 07:08 sp4 09/04 05:49 Order name: Urinalysis w/ reflexes sp4 09/04 06:22 Order name: C-Reactive Protein; Complete Time: 07:08 EDMS 09/04 10:52 Order name: Basic Metabolic Panel EDMS 09/04 10:52 Order name: Basic Metabolic Panel EDMS 09/04 10:52 Order name: Basic Metabolic Panel EDMS 09/04 10:52 Order name: Basic Metabolic Panel EDMS 09/04 10:52 Order name: CBC with Automated Diff EDMS 09/04 10:52 Order name: CBC with Automated Diff EDMS 09/04 10:52 Order name: CBC with Automated Diff EDMS 09/04 10:52 Order name: CBC with Automated Diff EDMS 09/04 06:14 Order name: CT Abd/Pelvis - IV Contrast Only; Complete Time: 07:48 sp4 09/04 10:42 Order name: Puncture Aspiration Of Abcess EDMS 09/04 05:49 Order name: IV Saline Lock; Complete Time: 06:10 sp4 09/04 05:49 Order name: Labs collected and sent; Complete Time: 06:10 sp4 Administered Medications: 06:16 Not Given (Physician Discretion): ondansetron 4 mg IVP once; over 2 minutes cp4 06:25 Drug: morphine IVP or IV 4 mg IVP once over 4 mins Route: IVP; Infused Over: 4 mins; cp4 Site: right antecubital; 07:00 Follow up: Response: No adverse reaction ph 06:25 Drug: Droperidol IVP 1.25 mg IVP once Route: IVP; Site: right antecubital; cp4 11:56 Follow up: Response: No adverse reaction ph 06:25 Drug: Ondansetron IVP 4 mg IVP once; over 2 minutes Route: IVP; Site: right antecubital;cp4 11:57 Follow up: Response: No adverse reaction ph 06:25 Drug: NS 0.9% IV 500 ml 500 ml IV at 1 bolus once; to be given as a bolus over 30 cp4 minutes Volume: 500 ml; Route: IV; Rate: 1 bolus; Site: right antecubital; 07:00 Follow up: Response: No adverse reaction; IV Status: Completed infusion; IV Intake: ph 500ml 11:28 Drug: NS IV 0.45 % 1000 ml IV at 125 ml/hr continuous Route: IV; Rate: 125 ml/hr; Site: ph right antecubital; 11:58 Follow up: Response: No adverse reaction; IV Status: Infusion continued upon admission ph 11:28 Drug: morphine IVP or IV 4 mg IVP once over 4 mins Route: IVP; Infused Over: 4 mins; ph Site: right antecubital; 11:58 Follow up: Response: No adverse reaction; Pain is decreased ph 11:28 Drug: Ondansetron IVP 4 mg IVP once; over 2 minutes Route: IVP; Site: right antecubital;ph 11:57 Follow up: Response: No adverse reaction ph Disposition Summary: 09/04/24 10:41 Hospitalization Ordered Notes: Hospitalization Status: Inpatient Admission gb1 Provider: Stew Loo Condition: Stable gb1 Problem: new gb1 Symptoms: have worsened gb1 Bed/Room Type: Standard [facility] Location: Telemetry/MedSurg (Inpatient)(09/04/24 18:40) kb3 Room Assignment: 406(09/04/24 18:40) kb3 Diagnosis - Peritoneal abscess gb1 Forms: - Medication Reconciliation Form gb1 - SBAR form gb1 - Leadership Thank You Letter gb1 Signatures: Dispatcher [employer] EDMS Loree Morales Patricia RN RN ph Garima Funes, RN RN bri3 Eleno Morales MD MD sp4 Rafaela Mathis MD MD gb1 [place] cp4 Corrections: (The following items were deleted from the chart) 05:49 05:49 CBC+H.LAB.BRZ ordered. EDMS EDMS 05:49 05:49 COMPREHENSIVE METABOLIC PANEL+C.LAB.BRZ ordered. EDMS EDMS 05:49 05:49 LIPASE+C.LAB.BRZ ordered. EDMS EDMS 05:49 05:49 Urinalysis+U.LAB.BRZ ordered. EDMS EDMS 06:14 06:14 Abdomen Pelvis W Con+CT.RAD.BRZ ordered. EDMS EDMS 06:21 06:14 C-REACTIVE PROTEIN+C.LAB.BRZ ordered. EDMS EDMS 07:13 07:11 Constitutional: This is a well developed, well nourished patient who is awake, sp4 alert, and in no acute distress. Head/Face: Normocephalic, atraumatic. Eyes: Pupils equal round and reactive to light, extra-ocular motions intact. Lids and lashes normal. Conjunctiva and sclera are not injected. Cornea within normal limits. Periorbital areas with no swelling, redness, or edema. ENT: Nares patent. No nasal discharge, no septal abnormalities noted. Tympanic membranes are normal and external auditory canals are clear. Oropharynx with no redness, swelling, or masses, exudates, or evidence of obstruction, uvula midline. Mucous membranes moist. Neck: Trachea midline, no thyromegaly or masses palpated, and no cervical lymphadenopathy. Supple, full range of motion without nuchal rigidity, or vertebral point tenderness. Chest/axilla: Normal chest wall appearance and motion. Nontender with no deformity. No lesions are appreciated. Cardiovascular: Regular rate and rhythm with a normal S1 and S2. No gallops, murmurs, or rubs. Normal PMI, no JVD. No pulse deficits. Respiratory: Lungs have equal breath sounds bilaterally, clear to auscultation and percussion. No rales, rhonchi or wheezes noted. No increased work of breathing, no retractions or nasal flaring. Abdomen/GI: Soft, with normal bowel sounds. No distension or tympany. No guarding or rebound. No evidence of tenderness throughout. Back: No spinal tenderness. No costovertebral tenderness. Skin: Warm, dry with normal turgor. Normal color with no rashes, no lesions, and no evidence of cellulitis. MS/ Extremity: Pulses equal, no cyanosis. Neurovascular intact. Full, normal range of motion. Neuro: Awake and alert, GCS 15, oriented to person, place, time, and situation. Cranial nerves II-XII grossly intact. Motor strength 5/5 in all extremities. Sensory grossly intact. Psych: Awake, alert, with orientation to person, place and time. Behavior, mood, and affect are within normal limits sp4 13:16 10:41 Telemetry/MedSurg (observation) gb1 bd 13:16 10:41 gb1 bd 18:40 13:16 [facility] ER HOLD bd kb3 18:40 13:16 ERHOLD- bd kb3
--- NOTE | 2024-09-04 10:42 | ER ---
Nurse's Notes [facility] Name: Clair Ruvalcaba Age: 74 yrs Sex: Female : 1950 Arrival Date: 09/04/2024 Time: 05:40 Bed 8 Private MD: Jorge Kim V Diagnosis: Peritoneal abscess Presentation: 09/04 06:10 Chief complaint: Patient states: right sided abdominal pain that started on Monday. cp4 Coronavirus screen: Client denies travel out of the [place] in the last 14 days. At this time, the client does not indicate any symptoms associated with coronavirus-19. Ebola Screen: Patient negative for fever greater than or equal to 101.5 degrees Fahrenheit, and additional compatible Ebola Virus Disease symptoms Patient denies exposure to infectious person. Patient denies travel to an Ebola-affected area in the 21 days before illness onset. No symptoms or risks identified at this time. Initial Sepsis Screen: Does the patient meet any 2 criteria? No. Patient's initial sepsis screen is negative. Does the patient have a suspected source of infection? No. Patient's initial sepsis screen is negative. Risk Assessment: Do you want to hurt yourself or someone else? Patient reports no desire to harm self or others. Onset of symptoms was September 02, 2024. 06:10 Method Of Arrival: Ambulatory 4 06:10 Acuity: FÉLIX 3 cp4 Triage Assessment: 06:11 General: Appears in no apparent distress. uncomfortable, Behavior is calm, cooperative, cp4 appropriate for age. Pain: Complains of pain in abdomen Pain does not radiate. Pain currently is 7 out of 10 on a pain scale. EENT: No signs and/or symptoms were reported regarding the EENT system. Neuro: Level of Consciousness is awake, alert, obeys commands, Oriented to person, place, time, situation. Cardiovascular: Patient's skin is warm and dry. Respiratory: Airway is patent Respiratory effort is even, unlabored. GI: Abdomen is round non-distended, Bowel sounds present X 4 quads. Abd is soft and non tender X 4 quads. : No signs and/or symptoms were reported regarding the genitourinary system. Derm: No signs and/or symptoms reported regarding the dermatologic system. Musculoskeletal: No signs and/or symptoms reported regarding the musculoskeletal system. Historical: - Allergies: 06:11 Lisinopril; cp4 06:11 PENICILLINS; cp4 - PMHx: 06:11 chronic back pain; Hypertension; Hypothyroidism; cp4 - Immunization history:: Adult Immunizations up to date. - Infectious Disease History:: Denies. - Social history:: Smoking status: Patient denies any tobacco usage or history of. - Family history:: not pertinent. Screenin:13 [facility] ED Fall Risk Assessment (Adult) History of falling in the last 3 months, cp4 including since admission No falls in past 3 months (0 pts) Confusion or Disorientation No (0 pts) Intoxicated or Sedated No (0 pts) Impaired Gait No (0 pts) Mobility Assist Device Used No (0 pt) Altered Elimination No (0 pt) Score/Fall Risk Level 0 - 2 = Low Risk Oriented to surroundings, Maintained a safe environment, Assessed \T\ reinforced patient's understanding of fall precautions, Hourly rounding (assess needs \T\ fall precautionary measures) done. Abuse screen: Denies threats or abuse. Denies injuries from another. Nutritional screening: No deficits noted. Tuberculosis screening: No symptoms or risk factors identified. Assessment: 06:13 Reassessment: No changes from previously documented assessment. cp4 07:30 Reassessment: Patient appears in no apparent distress at this time. Patient and/or ph family updated on plan of care and expected duration. Pain level reassessed. Patient is alert, oriented x 3, equal unlabored respirations, skin warm/dry/pink. 09:00 Reassessment: Patient appears in no apparent distress at this time. Patient and/or ph family updated on plan of care and expected duration. Pain level reassessed. Patient is alert, oriented x 3, equal unlabored respirations, skin warm/dry/pink. 11:00 Reassessment: Pt taken to radiology for a procedure. ph 11:46 Reassessment: Patient appears in no apparent distress at this time. Patient and/or ph family updated on plan of care and expected duration. Pain level reassessed. Patient is alert, oriented x 3, equal unlabored respirations, skin warm/dry/pink. 12:17 Reassessment: REPORT RECEIVED FROM POLA CRONIN. ASSUMING CARE OF PT AT THIS TIME. dd2 Vital Signs: 06:10 BP 146 / 92; Pulse 91; Resp 18; Temp 98.2; Pulse Ox 95% ; Weight 65.77 kg; Height 5 ft. cp4 0 in. ; Pain 7/10; 07:26 BP 142 / 74; Pulse 86; Resp 18; Pulse Ox 95% on R/A; ph 09:00 BP 138 / 78; Pulse 97; Resp 18; Pulse Ox 97% on R/A; ph 10:00 BP 141 / 76; Pulse 89; Resp 18; Pulse Ox 99% on R/A; ph 12:18 BP 119 / 68; Pulse 92; Resp 16; Pulse Ox 99% ; dd2 19:00 BP 131 / 63; Pulse 97; Resp 16; Pulse Ox 98% ; al5 06:10 Body Mass Index 28.32 (65.77 kg, 152.4 cm) cp4 06:10 Pain Scale: Adult cp4 Cydney Coma Score: 07:11 Eye Response: spontaneous(4). Motor Response: obeys commands(6). Verbal Response: sp4 oriented(5). Total: 15. ED Course: 05:43 Patient arrived in ED. gm2 05:43 Jorge Kim MD is Private Physician. gm2 05:48 Eleno Morales MD is Attending Physician. sp4 06:11 Triage completed. cp4 06:11 Arm band placed on right wrist. Patient placed in waiting room. cp4 06:13 Bed in low position. Call light in reach. Side rails up X 1. cp4 06:13 No provider procedures requiring assistance completed. Initial lab(s) drawn, by wi, cp4 sent to lab. Inserted saline lock: 22 gauge in right antecubital area, using aseptic technique. Blood collected. Flushed with 10 mL NS. 07:10 Attending Physician role handed off by Eleno Morales MD gb1 07:10 Rafaela Mathis MD is Attending Physician. gb1 07:30 CT Abd/Pelvis - IV Contrast Only In Process Unspecified. EDMS 09:48 Tiara Mcfarlane, POLA is Primary Nurse. ph 10:39 Stew Loo is Hospitalizing Provider. gb1 10:44 Patient moved back from ultrasound. db 11:47 Patient admitted, IV remains in place. ph Administered Medications: 06:16 Not Given (Physician Discretion): ondansetron 4 mg IVP once; over 2 minutes cp4 06:25 Drug: morphine IVP or IV 4 mg IVP once over 4 mins Route: IVP; Infused Over: 4 mins; cp4 Site: right antecubital; 07:00 Follow up: Response: No adverse reaction ph 06:25 Drug: Droperidol IVP 1.25 mg IVP once Route: IVP; Site: right antecubital; cp4 11:56 Follow up: Response: No adverse reaction ph 06:25 Drug: Ondansetron IVP 4 mg IVP once; over 2 minutes Route: IVP; Site: right antecubital;cp4 11:57 Follow up: Response: No adverse reaction ph 06:25 Drug: NS 0.9% IV 500 ml 500 ml IV at 1 bolus once; to be given as a bolus over 30 cp4 minutes Volume: 500 ml; Route: IV; Rate: 1 bolus; Site: right antecubital; 07:00 Follow up: Response: No adverse reaction; IV Status: Completed infusion; IV Intake: ph 500ml 11:28 Drug: NS IV 0.45 % 1000 ml IV at 125 ml/hr continuous Route: IV; Rate: 125 ml/hr; Site: ph right antecubital; 11:58 Follow up: Response: No adverse reaction; IV Status: Infusion continued upon admission ph 11:28 Drug: morphine IVP or IV 4 mg IVP once over 4 mins Route: IVP; Infused Over: 4 mins; ph Site: right antecubital; 11:58 Follow up: Response: No adverse reaction; Pain is decreased ph 11:28 Drug: Ondansetron IVP 4 mg IVP once; over 2 minutes Route: IVP; Site: right antecubital;ph 11:57 Follow up: Response: No adverse reaction ph Medication: 06:13 VIS not applicable for this client. cp4 Intake: 07:00 IV: 500ml; Total: 500ml. ph Outcome: 10:41 Decision to Hospitalize by Provider. gb1 21:03 Patient left the ED. rg5 Signatures: Dispatcher [employer] Tiara Cornelius RN RN ph Cici Pfeiffer RN RN db Potepalov, Sergey, MD MD sp4 Rafaela Mathis MD MD gb1 [place] cp4 Lissett Hansen 2 Francisco J Gregg RN RN rg5 Lolly Zavala, RN RN al5 MARY RUBY, RN RN dd2
[2024-09-04] MEDS ORDERED: NA CHLORIDE 0.9% 1,000 ML ONE (12:23)
[2024-09-04] MEDS: NA CHLORIDE 0.9% 1,000 ML IV SCH (12:24)
[2024-09-04] MEDS ORDERED: MORPHINE 2 MG/ML SYR ONE ×2 (13:56→18:59)
[2024-09-04] MEDS: MORPHINE 2 MG/ML SYR IV PRN (14:00)
[2024-09-04] MEDS: ONDANSETRON 4 MG/2 ML VIAL IV PRN (14:01)
[2024-09-04 16:36] VITALS: BMI 28.2
[2024-09-04] MEDS ORDERED: NA CHLORIDE 0.9% 100 ML ONE (16:54)
[2024-09-04] MEDS ORDERED: PIPERACIL/TAZO 3.375 GM VIAL IV ONE (16:54)
[2024-09-04] MEDS: PIPER TAZO 3.375 GM in NA CHLORIDE 0.9% 100 ML IV SCH (17:03)
--- NOTE | 2024-09-04 17:51 | RAD REPORT ---
PROCEDURE: ULTRASOUND GUIDED DRAIN PLACEMENT Pre-procedure diagnosis: Intraperitoneal right inguinal fluid collection Post-procedure diagnosis: Same as above. CLINICAL INDICATION: Female, 74 years old. ABSCESS DRAINAGE Additional clinical history: None. COMPLICATIONS: No immediate complications. IMPRESSION: Ultrasound guided placement of 8.2 Occitan pigtail indwelling drainage catheter, yielding 4 mL of foul -smelling purulent fluid. Additional procedure(s): Abscessogram was not performed. PLAN: Specimen sent for evaluation. Drain to bulb suction. PROCEDURE DETAILS: Consent: Informed consent for the procedure including risks, benefits and alternatives was obtained a nd time-out was performed prior to the procedure. Preparation: The site was prepared and draped using all elements of maximal sterile barrier technique including sterile gloves, sterile gown, cap, mask, large sterile sheet, sterile probe cover as needed, hand hygiene and cutaneous antisepsis with 2% chlorhexidine. Sedation: No sedation Procedure: The patient was positioned supine and initial imaging was performed. Local anesthesia was administered. The drainage catheter was placed, secured with adhesive catheter lane. Position of the drainage catheter within the fluid collection was confirmed. [id number]. Specimen: Aspirated fluid was sent for analysis. Contrast used: None. Estimated blood loss: Less than 10 mL.
--- NOTE | 2024-09-04 19:03 | CON ---
Date of Consultation: 09/04/2024 Reason For Service: Intraabdominal and inguinal abscess. History Of Present Illness: This is a case of a 74-year-old patient who comes to us with a right low er quadrant and groin pain. Etiology of that is unknown. No trauma that she can remember. She was doing some watching last Monday and 3 days ago, she also developed this pain in that regio n. She does not recall any falling or any lifting heavy. The pain was more intense to the point america t she came to the ER and diagnosed with a fluid collection in the right groin area and right lower qu adrant. The etiology of that is unknown. She has no recent surgeries. No injections in that area. No dysuria, hematuria, hematochezia, melena. No recent traveling out of the country. No primary si ck at home. Review of Systems: Ten points otherwise unremarkable. Allergies: LISINOPRIL, PENICILLIN. Medical History: Chronic back pain, hypertension, hypothyroidism. Social History: She does not smoke. She does not drink alcohol. Medications: Reviewed. Physical Examination: Vital Signs: Stable. General: The patient is awake, alert. HEENT: Pupils were equally reactive, anicteric. Neck: Supple. Chest: Clear. HEART: S1, S2. Abdomen: Soft and depressible. There is mild right lower quadrant tenderness in the right lower anupam drant to the inguinal region. There is no trauma, no lacerations, no open wounds, and no redness on top, which felt the fullness in that region and tenderness. Pelvic: Deferred. Rectal: Deferred. Extremities: Good capillary refill. Laboratory Data: Blood work shows a WBC count of 6.5, hemoglobin of 9.1, potassium 3.4, and glucose 133. CAT scan of the abdomen and pelvis shows interpreted by fluid collection in the right lower quadrant along the terminal ileum extending to the right inguinal canal. The etiology of that is uncertain. No history of surgery in that region. Ultrasound aspirations and possible drain placement are indicated as per . Assessment: This is a 74-year-old patient comes to us with a fluid collection in the right lower anupam drant and inguinal region. The etiology of that is unknown since they believe it is doable to be don e ultrasound-guided. I agree with the aspiration in that region. There is no bowel we can see in th at area. At this moment, etiology of that is unknown at this moment. We will see what the cultures are when the aspiration shows and then we will proceed accordingly. In the meantime, continue antibi otics. RANDAL/SALVADOR Voice ID: [id number] Report ID: [id number]
[2024-09-04] MEDS: HYDROCODONE/APAP 5/325 MG TAB PO PRN (21:29)
--- NOTE | 2024-09-04 21:41 | P.HP ---
Patient History Date of Service: 09/04/24 Reason for admission: SEVERE ABDOMEN PAIN History of Present Illness: DHARA HAS HISTORY OF ADHD, HAS HAD APPENDECTOMY A YEAR AGO, R SIDE RENAL SURGERY FOR TUMOR A FEW WEEKS AGO AND ABOUT 3 DAYS AGO SHE STARTED TO HAVE R SIDE ABDOMEN PAIN. CT SHOWS 4-3 CM FLUID COLLECTION FROM ILEUM TO R GROIN AREA. THIS WAS ASPIRATED BY DR. ALDRICH AND NURSE CALLED ME TO GET ORDERS FOR IT. SHE IS IN ER WHEN I SAW HER. SHE HAD A LOT OF PAIN DURING THE PROCEDURE. Allergies lisinopril Allergy (Intermediate, Verified 09/02/24 13:27) Facial Swelling ciprofloxacin [From Cipro] Allergy (Verified 09/02/24 13:27) tendonitis amoxicillin [From Amoxil] Adverse Reaction (Verified 09/02/24 13:27) DIARRHEA naproxen Adverse Reaction (Verified 09/02/24 13:27) Contraindicated due to gastric bypass Home medications list reviewed: Yes Home Medications: Duloxetine HCl [Cymbalta] 60 mg PO BEDTIME 10/13/22 Cholecalciferol (Vitamin D3) [Vitamin D 5,000 Iu Cap] 5,000 unit PO BEDTIME 07/26/24 Cyanocobalamin [Vitamin B-12] 1,000 mcg PO BEDTIME 07/26/24 Trazodone HCl 100 mg PO BEDTIME 07/26/24 Ibuprofen [Advil] 2 tab PO DAILY PRN 09/02/24 Magnesium Citrate 100 mg PO BID 09/02/24 Vitamin D3/Vitamin K2 (Mk4) [K2 Plus D3 Tablet] 1 tab PO BEDTIME 09/02/24 - Past Medical/Surgical History Has patient received pneumonia vaccine in the past: Yes Diabetic: No -: adhd -: depression -: rectal prolapse -: vaginal prolapse -: gastric bypass -: rectal prolapse repair -: Rt. total knee replacement in 2004 - Social History Alcohol use: No CD- Drugs: No Caffeine use: No Review of Systems 10-point ROS is otherwise unremarkable General: Weakness, As per HPI Physical Examination - Vital Signs Temperature: 99.9 F Blood Pressure: 152/84 Pulse: 71 Respirations: 20 Pulse Ox (%): 100 - Physical Exam General: Alert, In no apparent distress HEENT: Atraumatic, PERRLA, Mucous membr. moist/pink, EOMI, Sclerae nonicteric Neck: Supple, 2+ carotid pulse no bruit, No LAD, Without JVD or thyroid abnormality Respiratory: Clear to auscultation bilaterally, Normal air movement Cardiovascular: Regular rate/rhythm, Normal S1 S2 Gastrointestinal: Normal bowel sounds, No tenderness Musculoskeletal: No tenderness Integumentary: No rashes Neurological: Normal gait, Normal speech, Normal strength at 5/5 x4 extr, Normal tone, Normal affect Lymphatics: No axilla or inguinal lymphadenopathy - Studies Laboratory Data (last 24 hrs) 09/04/24 09/04/24 06:07 06:07 WBC 6.50 Hgb 9.1 L Hct 28.3 L Plt Count 312 Sodium 140 Potassium 3.4 L BUN 13 Creatinine 0.99 Glucose 133 H Total Bilirubin 0.4 AST < 10 L ALT 15 Alkaline Phosphatase 78 Lipase 23 Assessment and Plan - Problems (Diagnosis) (1) Abdominopelvic abscess Current Visit: Yes Status: Acute Plan: SHE HAD IT DRAINED BY DR. ALDRICH SHE HAS A DRAIN NOW. IV ZOSYN CULTURE AND CYTOLOGY ORDER SENT. PROGNOSIS FAIR. - Advance Directives Does patient have a Living Will: No Does patient have a Durable POA for Healthcare: No
[2024-09-05 04:46] LABS: Absolute Eosinophils 0.3 K/uL (0-0.5); Absolute Lymphocytes (CBC) 1.3 K/uL (0.7-4.9); Absolute Monocytes 0.8 K/uL (0.1-1.3); Absolute Neutrophil 3.4 K/uL (1.8-8.0); Basophils % 0.7 % (0-1.3); Eosinophils % 4.6 % (0-4.4); Hematocrit 25.2 % (36.0-45.0); Lymphocytes % 22.3 % (15.3-44.8); MCH 23.9 pg (27.0-35.0); MCHC 31.9 g/dL (32.0-36.0); MPV 7.5 fL (7.6-11.3); Monocytes % 14.4 % (3.3-12.3); Platelets 256 thou/uL (152-406); RBC Red Blood Cell Count 3.37 M/uL (3.86-4.86); Red Cell Distribution Width 16.4 % (12.1-15.2)
[2024-09-05 05:05] LABS: Anion Gap 7.4 mEq/L (5.0-15.0); Potassium 3.4 mEq/L (3.5-5.1)
[2024-09-05] MEDS: POTASSIUM CL SA 10 MEQ TAB PO ONE (08:52)
[2024-09-05] MEDS: ENOXAPARIN 40 MG/0.4 ML SQ SCH (08:53)
[2024-09-05] MEDS: MAGNESIUM CITRATE 100 MG PO SCH (08:58)
[2024-09-05] MEDS ORDERED: MAGNESIUM CITRATE 100 MG PO SCH (09:00)
--- NOTE | 2024-09-05 13:07 | P.PN ---
Subjective Date of Service: 09/05/24 Chief Complaint: SEVERE ABDOMEN PAIN Subjective: Improving SHE HAD ABSCESS DRAINED BY DR. ALDRICH. HE SAID IT TRACKED FROM CECUM AREA TO JUST BENEATH RIGHT ING REGION SHE HAS SMALL HERNIA. SHE IS STILL IN PAIN. CULTURE IS PENDING. SHE IS ON IV ABX. Review of Systems 10-point ROS is otherwise unremarkable Physical Examination - Vital Signs Temperature: 98.2 F Blood Pressure: 121/54 Pulse: 83 Respirations: 18 Pulse Ox (%): 96 - Physical Exam General: Mild distress, Moderate distress HEENT: Atraumatic, PERRLA, EOMI Neck: Supple, JVD not distended Respiratory: Clear to auscultation bilaterally, Normal air movement Cardiovascular: Regular rate/rhythm, Normal S1 S2 Gastrointestinal: Normal bowel sounds, No tenderness Musculoskeletal: No tenderness Integumentary: No rashes Neurological: Normal speech, Normal tone, Normal affect Lymphatics: No axilla or inguinal lymphadenopathy - Studies Medications List Reviewed: Yes Assessment And Plan - Current Problems (Diagnosis) (1) Abdominopelvic abscess Current Visit: Yes Status: Acute Plan: SHE HAD IT DRAINED BY DR. ALDRICH SHE HAS A DRAIN NOW. IV ZOSYN CULTURE AND CYTOLOGY ORDER SENT. PROGNOSIS FAIR. DR ALDRICH MAY TAKE OUT DRAIN IN AM IF THERE IS NO DRAINAGE. CONT IV ABX CULTURE GROWS GRAM POS COCCI AND GRAM NEGBACILLI. ID PENDING.
[2024-09-05 16:27] LABS: Percent Reticulocyte Count 1.18 % (0.4-2.05); RBC Red Blood Cell Count 3.27 M/uL (3.86-4.86)
[2024-09-05 17:09] LABS: Ferritin 10.8 ng/mL (8-252)
[2024-09-05] MEDS: DULOXETINE 30 MG CAP PO SCH (20:32)
[2024-09-05] MEDS: TRAZODONE 50 MG TABLET PO SCH (20:32)
[2024-09-05] MEDS ORDERED: HOME MED 1 EA UNK (Trazodone Hcl [Trazodone Hcl] 100 MG Tablet) PO SCH (21:00)
[2024-09-06 04:53] LABS: Absolute Eosinophils 0.3 K/uL (0-0.5); Absolute Lymphocytes (CBC) 1.2 K/uL (0.7-4.9); Absolute Monocytes 0.5 K/uL (0.1-1.3); Absolute Neutrophil 2.6 K/uL (1.8-8.0); Basophils % 0.9 % (0-1.3); Eosinophils % 7.1 % (0-4.4); Hemoglobin 7.8 g/dL (12.0-15.0); Lymphocytes % 25.5 % (15.3-44.8); MCH 23.5 pg (27.0-35.0); MCHC 31.3 g/dL (32.0-36.0); MCV 75.1 fL (80-100); MPV 7.1 fL (7.6-11.3); Monocytes % 11.3 % (3.3-12.3); Neutrophils % 55.2 % (41.7-73.7); Platelets 278 thou/uL (152-406); RBC Red Blood Cell Count 3.33 M/uL (3.86-4.86); Red Cell Distribution Width 16.5 % (12.1-15.2)
[2024-09-06 07:38] LABS: Specific Gravity 1.019 (1.005-1.030); Urine Bilirubin NEGATIVE (Negative); Urine Blood Negative (Negative); Urine Clarity Clear (Clear); Urine Color Light-Yellow (Yellow); Urine Glucose NEGATIVE (Negative); Urine Ketones NEGATIVE (Negative); Urine Microscopic Reflex YN NO UMIC; Urine Nitrite NEGATIVE (Negative); Urine Protein NEGATIVE (Negative); Urine Urobilinogen Normal (Normal)
[2024-09-06 08:06] VITALS: TEMP 97.9
[2024-09-06 08:15] VITALS: O2SAT 93
[2024-09-06 12:28] VITALS: BP 111/55
--- NOTE | 2024-09-06 16:17 | P.DS ---
Admission Date: 09/04/24 Discharge Date: 09/06/24 Disposition: ROUTINE DISCHARGE Discharge Condition: FAIR Reason for Admission: SEVERE ABDOMEN PAIN - Problems (1) Abdominopelvic abscess Status: Acute Brief History of Present Illness: DHARA HAS HISTORY OF ADHD, HAS HAD APPENDECTOMY A YEAR AGO, R SIDE RENAL SURGERY FOR TUMOR A FEW WEEKS AGO AND ABOUT 3 DAYS AGO SHE STARTED TO HAVE R SIDE ABDOMEN PAIN. CT SHOWS 4-3 CM FLUID COLLECTION FROM ILEUM TO R GROIN AREA. THIS WAS ASPIRATED BY DR. ALDRICH AND NURSE CALLED ME TO GET ORDERS FOR IT. SHE IS IN ER WHEN I SAW HER. SHE HAD A LOT OF PAIN DURING THE PROCEDURE. Hospital Course: DHARA CAME WITH ACUTE ABDOMEN PAIN, WAS FOUND TO HAVE A FLUID COLLECTION NEAR R CECUM TRACKING DOWN TO R GROIN AREA. SHE ASPIRATION DONE BY LUCAS AND FLUID WAS SENT FOR CULTURE AND CYTOLOGY. SO FAR IT IS GROWING GRAM POS COCCI IN CHAINS AND GRAM NEG BACILLI. SHE IS STABLE TO GO HOME ON PAIN MEDS, CEFTIN AND FLAGYL. SHE WILL FU WITH DR. JOINER. I TALKED TO HIM. HE WILL REMOVE THE DRAIN. IT IS NOT CLEAR HOW SHE FLARED UP MONTHS AFTER SURGERY ON R APPENDIX AND R KIDNEY. Vital Signs/Physical Exam: Temp Pulse Resp BP Pulse Ox 97.9 F 85 17 111/55 L 92 09/06/24 12:00 09/06/24 12:00 09/06/24 13:40 09/06/24 12:00 09/06/24 13:40 Laboratory Data at Discharge: WBC 4.70 thou/uL (4.3-10.9) 09/06/24 04:19 Hgb 7.8 g/dL (12.0-15.0) L 09/06/24 04:19 Hct 25.0 % (36.0-45.0) L 09/06/24 04:19 Plt Count 278 thou/uL (152-406) 09/06/24 04:19 Sodium 142 mEq/L (136-145) 09/06/24 04:19 Potassium 4.0 mEq/L (3.5-5.1) D 09/06/24 04:19 BUN 7 mg/dL (7-18) 09/06/24 04:19 Creatinine 0.75 mg/dL (0.55-1.02) 09/06/24 04:19 Glucose 109 mg/dL (74-106) H 09/06/24 04:19 Total Bilirubin 0.4 mg/dL (0.2-1.0) 09/04/24 06:07 AST < 10 U/L (15-37) L 09/04/24 06:07 ALT 15 U/L (13-56) 09/04/24 06:07 Alkaline Phosphatase 78 U/L (45-117) 09/04/24 06:07 Lipase 23 U/L (13-75) 09/04/24 06:07 Home Medications: Duloxetine HCl [Cymbalta] 60 mg PO BEDTIME 10/13/22 Trazodone HCl 100 mg PO BEDTIME 07/26/24 Magnesium Citrate 100 mg PO BID 09/02/24 Vitamin D3/Vitamin K2 (Mk4) [K2 Plus D3 Tablet] 1 tab PO BEDTIME 09/02/24 Followup: Jorge Kim MD [Primary Care Provider] - 1-2 Weeks
[2024-09-09 11:46] LABS: Abnormal Protein Band 1 REPORT; Albumin, (SPE) 2.8 g/dL (3.8-4.8); Alpha-1-Globulins 0.4 g/dL (0.2-0.3); Alpha-2-Globulins 0.7 g/dL (0.5-0.9); Beta 1 Globulin 0.4 g/dL (0.4-0.6); Gamma Globulins 0.6 g/dL (0.8-1.7); INTERPRETATION REPORT; Total Protein 5.1 g/dL (6.1-8.1)
[2024-09-10 20:06] LABS: Celiac Interpretation REPORT; Immunoglobulin A 96 mg/dL (70-320); Tissue Transglutaminase IgA Ab <1.0 U/mL (<15.0)
== END 2024-09-06 14:15 | disposition home or self-care (01) | DRG 373 ==
LOC: ER 05:40 → ERHOLD 10:47 → 4TH 19:09
PROVIDERS: ADMIT Internal Medicine; ATTEND Internal Medicine
PROC: 0W9G30Z Drainage of Peritoneal Cavity with Drainage Device, Percutaneous Approach (ICD-10-PCS; principal; 2024-09-04)
DX: K65.1 Peritoneal abscess (principal); I10 Essential (primary) hypertension; E03.9 Hypothyroidism, unspecified; D64.9 Anemia, unspecified; G89.29 Other chronic pain; M54.9 Dorsalgia, unspecified; F90.9 Attention-deficit hyperactivity disorder, unspecified type; B96.89 Other specified bacterial agents as the cause of diseases classified elsewhere; Z88.0 Allergy status to penicillin; Z88.8 Allergy status to other drugs, medicaments and biological substances; Z98.84 Bariatric surgery status; Z90.49 Acquired absence of other specified parts of digestive tract; Z79.899 Other long term (current) drug therapy; Z96.651 Presence of right artificial knee joint
CPT/HCPCS: 10160; 36415; 74177; 80048; 80053; 81003; 82607; 82728; 82784; 83540; 83615; 83690; 84165; 84466; 85025; 85044; 86140; 86364; 87070; 87077; 87186; 88108; 88305; 96361; 96374; 96375; 99284; J1650; J1790; J2270; J2405; J2543; J7030; J7040; Q9967